=== PATIENT | female | born 1995 | race Hispanic/Latino ===

== ENCOUNTER 2018-04-18 13:33 | Emergency (ER) | payer OTHER ==
[~2018-04-18] VITALS: Ht 160 cm; Wt 95.3 kg
[2018-04-18] MEDS ORDERED: MORPHINE SULFATE 4 MG/ML SYR IV STA (13:34)
[2018-04-18] MEDS ORDERED: SODIUM CHLORIDE 0.9% 1000ML 1,000 ML IV STA (13:34)
[2018-04-18] MEDS ORDERED: MORPHINE SULFATE 2 MG/ML SYR ONE (13:42)
[2018-04-18] MEDS ORDERED: ONDANSETRON HCL 4 MG ORAL DISINTEGRATING TAB PO ONE (13:45)
[2018-04-18 14:06] LABS: BASOPHILS % 0.5 % (0.0-1.0); EOSINOPHILS % 0.5 % (0.0-6.0); HEMOGLOBIN 13.5 g/dL (12.0-16.0); LYMPHOCYTES # (AUTO) 2.1 (1.0-3.2); LYMPHOCYTES % 25.2 % (18.0-39.1); MEAN CORPUSCULAR HEMOGLOBIN 29.9 pg (28-32); MEAN CORPUSCULAR HGB CONC 35.5 g/dL (31-35); MEAN CORPUSCULAR VOLUME 84.1 fL (81-99); MONOCYTES # (AUTO) 0.5 (0.2-0.8); MONOCYTES % 6.4 % (4.4-11.3); NEUTROPHILS # (AUTO) 5.6 (2.1-6.9); NEUTROPHILS % 66.8 % (38.7-80.0); PLATELET COUNT 389 x10e3/uL (140-360); RED BLOOD COUNT 4.52 x10e6/uL (3.6-5.1); RED CELL DISTRIBUTION WIDTH 12.6 % (11.7-14.4)
[2018-04-18 14:28] LABS: ALANINE AMINOTRANSFERASE 130 IU/L (0-55); ALBUMIN 4.4 g/dL (3.5-5.0); ALBUMIN/GLOBULIN RATIO 1.2 (0.8-2.0); ALKALINE PHOSPHATASE 76 IU/L (40-150); AMYLASE 68 U/L (25-125); ANION GAP 14.5 mmol/L (8-16); BLOOD UREA NITROGEN 11 mg/dL (7-26); BUN/CREATININE RATIO 15 (6-25); CARBON DIOXIDE 23 mmol/L (22-29); CHLORIDE 103 mmol/L (98-107); CREATININE, SERUM 0.75 mg/dL (0.57-1.11); EST GLOMERULAR FILTRATION RATE > 60 ML/MIN (60-); GLUCOSE 122 mg/dL (74-118); LIPASE 180 U/L (8-78); POTASSIUM 3.5 mmol/L (3.5-5.1); SODIUM 137 mmol/L (136-145)
[2018-04-18] MEDS ORDERED: DONNATAL/LIDOCAINE/MAALOX 30 ML SUSP PO SCH (15:00)
--- NOTE | 2018-04-18 15:07 | Diagnostic Imaging Report ---
PROCEDURE:GALLBLADDER ULTRASOUND COMPARISON:None. INDICATION:Abdominal pain. TECHNIQUE:Mitchell scale color Doppler ultrasound gallbladder. FINDINGS: Right liver span 16 cm. Diffusely increased/coarsened echotexture with a smooth margin. Portal vein diameter 0.9 cm; normal flow direction. Contracted gallbladder containing mobile calcified stones. Wall thickness 3 mm. Common bile duct diameter 4 mm. No sonographic Mckeon's sign. No pericholecystic fluid. CONCLUSION: 1. Cholelithiasis without sonographic evidence of cholecystitis. 2. Hepatic steatosis. Dictated by: Ruben Delgado M.D. on 04/18/2018 at 15:09 Electronically approved by: Ruben Delgado M.D. on 04/18/2018 at 15:09
--- NOTE | 2018-04-18 15:45 | Diagnostic Imaging Report ---
PROCEDURE: CT ABDOMEN AND PELVIS WITHOUT CONTRAST TECHNIQUE: The abdomen and pelvis were scanned utilizing a multidetector helical scanner from the diaphragm to the lesser trochanter after the oral administration of water. No IV contrast was administered due to history of iodine allergy Coronal and sagittal multiplanar reformations were obtained. COMPARISON: Patients [facility], US, US GALLBLADDER, 04/18/2018, 14:28. INDICATIONS: RIGHT UPPER QUAD PAIN FINDINGS: ABSENCE OF INTRAVENOUS CONTRAST DECREASES SENSITIVITY FOR DETECTION OF FOCAL LESIONS AND VASCULAR PATHOLOGY. LOWER THORAX: Lung bases are clear. HEPATOBILIARY: Hepatic steatosis, worse in the right lobe. No focal lesions. No intra-or extrahepatic biliary ductal dilation. Layering 2-3 mm gallstones in the gallbladder fundus (6 coronal image 40). No wall thickening or pericholecystic fluid. SPLEEN: No splenomegaly. PANCREAS: No focal masses or ductal dilatation. ADRENALS: No adrenal nodules. KIDNEYS/URETERS: No hydronephrosis, stones, or solid mass lesions. PELVIC ORGANS/BLADDER: Bladder and uterus are unremarkable. Uterus is retroflexed. No adnexal masses. PERITONEUM / RETROPERITONEUM: No free air or fluid. LYMPH NODES: No lymphadenopathy. VESSELS: Unremarkable. GI TRACT: No bowel dilation or evidence of obstruction. Appendix is well identified and normal in caliber. No pericolonic inflammatory changes. BONES AND SOFT TISSUES: No aggressive lytic lesion. Are unremarkable. IMPRESSION: 1. No acute abdominopelvic abnormalities. 2. Cholelithiasis, without CT evidence of cholecystitis. 3. Hepatic steatosis. Bhavik Stewart M.D. Dictated by: Bhavik Stewart M.D. on 04/18/2018 at 15:47 Electronically approved by: Bhavik Stewart M.D. on 04/18/2018 at 15:47
[2018-04-18 16:00] LABS: BILIRUBIN,URINE NEGATIVE (NEGATIVE); CLARITY,URINE CLOUDY (CLEAR); COLOR,URINE RED (YELLOW); KETONES,URINE NEGATIVE (NEGATIVE); LEUKOCYTE ESTERASE ,URINE 1+ (NEGATIVE); NITRITE,URINE NEGATIVE (NEGATIVE); PROTEIN,URINE DIPSTICK 1+ (NEGATIVE); URINE UROBILINOGEN 0.2 mg/dL (0.2 - 1)
[2018-04-18 16:10] LABS: BACTERIA,URINE MODERATE /HPF; EPITHELIAL CELLS,URINE MANY /LPF; RBC,URINE >50 /HPF (0-5)
[2018-04-18 16:44] VITALS: BP 109/78
[2018-04-18] MEDS ORDERED: DONNATAL/LIDOCAINE/MAALOX 30 ML SUSP PO ONE (16:45)
== END 2018-04-18 16:40 | disposition home or self-care (01) ==
LOC: ER 13:33
DX: K80.20 Calculus of gallbladder without cholecystitis without obstruction (principal); R10.13 Epigastric pain; N39.0 Urinary tract infection, site not specified
CPT/HCPCS: 36415; 74176; 76705; 80053; 81001; 82150; 83690; 84702; 85025; 99284; J2270; J7030

== ENCOUNTER 2018-04-20 18:22 | Observation (INO) | payer OTHER ==
[~2018-04-20] VITALS: Ht 162.6 cm; Wt 101.7 kg
--- OUTSIDE RECORDS SUMMARY | 2018-04-20 18:25 | XMS REPORT ---
Author Author [facility] Address Unknown Phone Unavailable Care Team Providers Care Textile Converter Name Role Phone JENA OROURKE Unavailable Unavailable Problems This patient has no known problems. Allergies, Adverse Reactions, Alerts This patient has no known allergies or adverse reactions. Medications This patient has no known medications. Results Test Description Test Time Test Comments Text Results Atomic Results Result Comments US GALLBLADDER [place] [address] Patient Name: EDITH LEVY MR #: [id number] : 1995 Age/Sex: 22/F Req # : [id number] [facility] Physician: Ordered by: EZEKIEL TOBIN INSTRUCTIONAL ASSISTANT Report #: [id number] Location: ER Room/Bed: Procedure: [id number] US/US GALLBLADDER Exam Date: 04/18/18 Exam Time: 1428 REPORT STATUS: Signed PROCEDURE: GALLBLADDER ULTRASOUND COMPARISON: None. INDICATION: Abdominal pain. TECHNIQUE: Mitchell scale color Doppler ultrasound gallbladder. FINDINGS: Right liver span 16 cm. Diffusely increased/coarsened echotexture with a smooth margin. Portal vein diameter 0.9 cm; normal flow direction. Contracted gallbladder containing mobile calcified stones. Wall thickness 3 mm. Common bile duct diameter 4 mm. No sonographic Mckeon's sign. No pericholecystic fluid. CONCLUSION: 1. Cholelithiasis without sonographic evidence of cholecystitis. 2. Hepatic steatosis. Dictated by: Christine Delgado M.D. on 04/18/2018 at 15:09 Electronically approved by: Christine Delgado M.D. on 04/18/2018 at 15:09 Dictated By: CHRISTINE DELGADO MD [id number] Transcribed By: BENJAMÍN on 04/18/18 1509 COPY TO: EZEKIEL TOBIN INSTRUCTIONAL ASSISTANT CT ABDOMEN/PELVIS WO [place] [address] Patient Name: EDITH LEVY MR #: [id number] : 1995 Age/Sex: 22/F Req #: [id number] Physician: Ordered by: EZEKIEL TOBIN INSTRUCTIONAL ASSISTANT Report #: [id number] Location: ER Room/Bed: Procedure: [id number] CT/CT ABDOMEN/PELVIS WO Exam Date: 04/18/18 Exam Time: 1300 REPORT STATUS: Signed PROCEDURE: CT ABDOMEN AND PELVIS WITHOUT CONTRAST TECHNIQUE: The abdomen and pelvis were scanned utilizing a multidetector helical scanner from the diaphragm to the lesser trochanter after the oral administration of water. No IV contrast was administered due to history of iodine allergy Coronal and sagittal multiplanar reformations were obtained. COMPARISON: [facility], US, US GALLBLADDER, 04/18/2018, 14:28. INDICATIONS: RIGHT UPPER QUAD PAIN FINDINGS: ABSENCE OF INTRAVENOUS CONTRAST DECREASES SENSITIVITY FOR DETECTION OF FOCAL LESIONS AND VASCULAR PATHOLOGY. LOWER THORAX: Lung bases are clear. HEPATOBILIARY: Hepatic steatosis, worse in the right lobe. No focal lesions. No intra-or extrahepatic biliary ductal dilation. Layering 2-3 mm gallstones in the gallbladder fundus (6 coronal image 40). No wall thickening or pericholecystic fluid. SPLEEN: No splenomegaly. PANCREAS: No focal masses or ductal dilatation. ADRENALS: No adrenal nodules. KIDNEYS/URETERS: No hydronephrosis, stones, or solid mass lesions. PELVIC ORGANS/BLADDER: Bladder and uterus are unremarkable. Uterus is retroflexed. No adnexal masses. PERITONEUM / RETROPERITONEUM: No free air or fluid. LYMPH NODES: No lymphadenopathy. VESSELS: Unremarkable. GI TRACT: No bowel dilation or evidence of obstruction. Appendix is well identified and normal in caliber. No pericolonic inflammatory changes. BONES AND SOFT TISSUES: No aggressive lytic lesion. Are unremarkable. IMPRESSION: 1. No acute abdominopelvic abnormalities. 2. Cholelithiasis, without CT evidence of cholecystitis. 3. Hepatic steatosis. Ivy Stewart M.D. Dictated by: Ivy Stewart M.D. on 04/18/2018 at 15:47 Electronically approved by: Ivy Stewart M.D. on 04/18/2018 at 15:47 Dictated By: IVY STEWART MD 1547 Transcribed By: BENJAMÍN on 04/18/18 8327 COPY TO: EZEKIEL TOBIN NP
--- OUTSIDE RECORDS SUMMARY | 2018-04-20 18:25 | XMS REPORT | Continuity of Care Document ---
Author Author [facility] Organization [facility] Address [address] [place] [address] Phone Unavailable Care Team Providers Care Tree Puller Name Role Phone NO, PCP PCP Unavailable Insurance Providers Guarantor LoraFedericoEdith Address [id number] [place] [address] Email [facility]DECLINED [facility] Policy Number [id number] Subscriber's Name Edith Levy Relationship 18 Self / Same As Patient Advance Directives Directive Response Recorded Date/Time Does the patient have an advance directive? No 04/18/18 2:00pm If yes, is advance directive on file with [facility]? No 04/18/18 2:00pm If not on file with [facility] will patient provide a copy? No 04/18/18 2:00pm Do you have a Directive to Physician? No 04/18/18 2:00pm Do you have a Medical Power of Candy Spreader Helper? No 04/18/18 2:00pm Do you have an out of hospital Do Not Resuscitate Order? No 04/18/18 2:00pm Do you have any special needs we should be aware of? No 04/18/18 2:00pm Do you have a support person here with you today? Yes 04/18/18 2:00pm Did patient receive Notice of Privacy Practices? Yes 04/18/18 2:00pm Did patient receive patient rights and responsibilities? Yes 04/18/18 2:00pm Problems No problem information available. Medications No medication information available. Social History Smoking Status Start Date Stop Date Never Smoker Hospital Discharge Instructions No hospital discharge instruction information available. Plan of Care Discharge Date 04/18/18 4:40pm Disposition HOME, SELF-CARE Condition at Discharge Stable Instructions/Education Provided Cholelithiasis Forms Provided Work/School Excuse Prescriptions See Medication Section Referrals KAROLINA KING MD Address: [address] [place] [address] MARIBELL WALDEN MD Address: [address] [place] [address] Additional Instructions/Education 1. follow up with your doctor and gi doctor in 1-2 days without fail 2. return to ed as needed 3. avoid fatty foods Functional Status No functional status information available. Allergies, Adverse Reactions, Alerts No known allergies. Immunizations No immunization information available. Vital Signs Acute Vital Signs Vital Response Date/Time Pulse Pulse Rate (adult) 81 bpm (60 - 90) 04/18/2018 4:44pm Respiratory Rate 20 bpm (12 - 24) 04/18/2018 4:44pm Blood Pressure 109/78 mm Hg 04/18/2018 4:44pm Height 5 ft 3 in 04/18/2018 1:40pm Weight 210 lb 04/18/2018 1:40pm Body Mass Index 37.2 kg/m^2 04/18/2018 1:40pm Results Laboratory Results Test Name Result Units Flags Reference Collection Date/Time Result Date/ Time Comments White Blood Count 8.30 x10e3/uL 4.8-10.8 04/18/2018 1:35pm 04/18/2018 2 :07pm Red Blood Count 4.52 x10e6/uL 3.6-5.1 04/18/2018 1:35pm 04/18/2018 2: 07pm Hemoglobin 13.5 g/dL 12.0-16.0 04/18/2018 1:35pm 04/18/2018 2:07pm Hematocrit 38.0 % 34.2-44.1 04/18/2018 1:35pm 04/18/2018 2:07pm Mean Corpuscular Volume 84.1 fL 81-99 04/18/2018 1:35pm 04/18/2018 2: 07pm Mean Corpuscular Hemoglobin 29.9 pg 28-32 04/18/2018 1:35pm 04/18/2018 2:07pm Mean Corpuscular Hemoglobin Concent 35.5 g/dL H 31-35 04/18/2018 1:35pm 04/18/2018 2:07pm Red Cell Distribution Width 12.6 % 11.7-14.4 04/18/2018 1:35pm 2017 2:07pm Platelet Count 389 x10e3/uL H 140-360 04/18/2018 1:35pm 04/18/2018 2: 07pm Neutrophils (%) (Auto) 66.8 % 38.7-80.0 04/18/2018 1:35pm 04/18/2018 2: 07pm Lymphocytes (%) (Auto) 25.2 % 18.0-39.1 04/18/2018 1:35pm 04/18/2018 2: 07pm Monocytes (%) (Auto) 6.4 % 4.4-11.3 04/18/2018 1:35pm 04/18/2018 2: 07pm Eosinophils (%) (Auto) 0.5 % 0.0-6.0 04/18/2018 1:35pm 04/18/2018 2: 07pm Basophils (%) (Auto) 0.5 % 0.0-1.0 04/18/2018 1:35pm 04/18/2018 2:07pm IM GRANULOCYTES % 0.6 % 0.0-1.0 04/18/2018 1:35pm 04/18/2018 2:07pm Neutrophils # (Auto) 5.6 2.1-6.9 04/18/2018 1:35pm 04/18/2018 2:07pm Lymphocytes # (Auto) 2.1 1.0-3.2 04/18/2018 1:35pm 04/18/2018 2:07pm Monocytes # (Auto) 0.5 0.2-0.8 04/18/2018 1:35pm 04/18/2018 2:07pm Eosinophils # (Auto) 0.0 0.0-0.4 04/18/2018 1:35pm 04/18/2018 2:07pm Basophils # (Auto) 0.0 0.0-0.1 04/18/2018 1:35pm 04/18/2018 2:07pm Absolute Immature Granulocyte (auto 0.05 x10e3/uL 0-0.1 04/18/2018 1: 35pm 04/18/2018 2:07pm Urine Color RED H YELLOW 04/18/2018 3:50pm 04/18/2018 4:00pm Urine Clarity CLOUDY H CLEAR 04/18/2018 3:50pm 04/18/2018 4:00pm Urine Specific [place] 1.015 1.010-1.025 04/18/2018 3:50pm 2017 4:00pm Urine pH 8 H 5 - 7 04/18/2018 3:50pm 04/18/2018 4:00pm Urine Leukocyte Esterase 1+ H NEGATIVE 04/18/2018 3:50pm 04/18/2018 4: 00pm Urine Nitrite NEGATIVE NEGATIVE 04/18/2018 3:50pm 04/18/2018 4:00pm Urine Protein 1+ H NEGATIVE 04/18/2018 3:50pm 04/18/2018 4:00pm Urine Glucose (UA) NEGATIVE NEGATIVE 04/18/2018 3:50pm 04/18/2018 4: 00pm Urine Ketones NEGATIVE NEGATIVE 04/18/2018 3:50pm 04/18/2018 4:00pm Urine Urobilinogen 0.2 mg/dL 0.2 - 1 04/18/2018 3:50pm 04/18/2018 4: 00pm Urine Bilirubin NEGATIVE NEGATIVE 04/18/2018 3:50pm 04/18/2018 4: 00pm Urine Blood 4+ H NEGATIVE 04/18/2018 3:50pm 04/18/2018 4:00pm Urine WBC 11-20 /HPF H 0-5 04/18/2018 3:50pm 04/18/2018 4:10pm Urine RBC >50 /HPF H 0-5 04/18/2018 3:50pm 04/18/2018 4:10pm Urine Bacteria MODERATE /HPF H NONE 04/18/2018 3:50pm 04/18/2018 4:10pm Urine Epithelial Cells MANY /LPF NONE 04/18/2018 3:50pm 04/18/2018 4: 10pm Sodium Level 137 mmol/L 136-145 04/18/2018 1:35pm 04/18/2018 2:29pm Potassium Level 3.5 mmol/L 3.5-5.1 04/18/2018 1:35pm 04/18/2018 2:29pm Chloride Level 103 mmol/L 98-107 04/18/2018 1:3504/18/2018 2:29pm Carbon Dioxide Level 23 mmol/L 2204/18/2018 1:3504/18/2018 2: 29pm Anion Gap 14.5 mmol/L 8-16 04/18/2018 1:3504/18/2018 2:29pm Blood Urea Nitrogen 11 mg/dL 7-04/18/2018 1:3504/18/2018 2:29pm Creatinine 0.75 mg/dL 0.57-1.11 04/18/2018 1:3504/18/2018 2:29pm BUN/Creatinine Ratio 15 6-04/18/2018 1:3504/18/2018 2:29pm Estimat Glomerular Filtration Rate > 60 ML/MIN 6004/18/2018 1: 2:29pm Ranges were taken from the National Kidney Disease Education Program and the National Kidney Foundation literature. Reference ranges: 60 or greater: Normal 16-59 (for 3 consecutive months): Chronic kidney disease 15 or less: Kidney failure Glucose Level 122 mg/dL H 74-118 04/18/2018 1:3504/18/2018 2:29pm Calcium Level 10.0 mg/dL 8.4-10.2 04/18/2018 1:04/18/2018 2:29pm Total Bilirubin 1.3 mg/dL H 0.2-1.2 04/18/2018 1:3504/18/2018 2:29pm Aspartate Amino Transf (AST/SGOT) 129 IU/L H 5-34 04/18/2018 1: 2:29pm Alanine Aminotransferase (ALT/SGPT) 130 IU/L H 0-55 04/18/2018 1:35 2:29pm Total Protein 8.0 g/dL 6.5-8.1 04/18/2018 1:04/18/2018 2:29pm Albumin 4.4 g/dL 3.5-5.0 04/18/2018 1:3504/18/2018 2:29pm Globulin 3.6 g/dL H 2.3-3.5 04/18/2018 1:3504/18/2018 2:29pm Albumin/Globulin Ratio 1.2 0.8-2.0 04/18/2018 1:35pm 04/18/2018 2: 29pm Alkaline Phosphatase 76 IU/L 40-150 04/18/2018 1:35pm 04/18/2018 2: 29pm Amylase Level 68 U/L 25-125 04/18/2018 1:35pm 04/18/2018 2:29pm Lipase 180 U/L H 8-78 04/18/2018 1:35pm 04/18/2018 2:29pm Human Chorionic Gonadotropin, Qual NEGATIVE NEGATIVE 04/18/2018 1: 35pm 04/18/2018 2:17pm Procedures Procedure Status Date Provider(s) US gallbladder Active 04/18/18 EZEKIEL TOBIN SENIOR SYSTEMS SOFTWARE ENGINEER CT of abdomen and pelvis without contrast Active 04/18/18 EZEKIEL TOBIN SENIOR SYSTEMS SOFTWARE ENGINEER Encounters Encounter Location Arrival/Admit Date Discharge/Depart Date Attending Provider Departed Emergency Room [facility] 04/18/18 1:33pm 4:40pm JENA OROURKE MD
[2018-04-20] MEDS ORDERED: SODIUM CHLORIDE 0.9% 1000ML 1,000 ML IV STA (18:29)
[2018-04-20] MEDS ORDERED: ONDANSETRON HCL 4 MG ORAL DISINTEGRATING TAB PO ONE (18:30)
[2018-04-20] MEDS ORDERED: MORPHINE SULFATE 4 MG/ML SYR IV STA (18:42)
[2018-04-20] MEDS ORDERED: DONNATAL/LIDOCAINE/MAALOX 30 ML SUSP PO SCH (18:45)
[2018-04-20 19:06] LABS: BASOPHILS % 0.4 % (0.0-1.0); EOSINOPHILS # (AUTO) 0.1 (0.0-0.4); EOSINOPHILS % 1.3 % (0.0-6.0); HEMATOCRIT 37.2 % (34.2-44.1); HEMOGLOBIN 12.9 g/dL (12.0-16.0); LYMPHOCYTES # (AUTO) 1.4 (1.0-3.2); LYMPHOCYTES % 19.4 % (18.0-39.1); MEAN CORPUSCULAR HEMOGLOBIN 29.6 pg (28-32); MEAN CORPUSCULAR HGB CONC 34.7 g/dL (31-35); MEAN CORPUSCULAR VOLUME 85.3 fL (81-99); MONOCYTES # (AUTO) 0.4 (0.2-0.8); MONOCYTES % 5.9 % (4.4-11.3); NEUTROPHILS # (AUTO) 5.2 (2.1-6.9); NEUTROPHILS % 72.2 % (38.7-80.0); PLATELET COUNT 318 x10e3/uL (140-360); RED BLOOD COUNT 4.36 x10e6/uL (3.6-5.1); RED CELL DISTRIBUTION WIDTH 12.7 % (11.7-14.4)
[2018-04-20 19:22] LABS: ALANINE AMINOTRANSFERASE 634 IU/L (0-55); ALBUMIN 4.3 g/dL (3.5-5.0); ALBUMIN/GLOBULIN RATIO 1.1 (0.8-2.0); ALKALINE PHOSPHATASE 104 IU/L (40-150); AMYLASE 48 U/L (25-125); ANION GAP 16.9 mmol/L (8-16); BLOOD UREA NITROGEN 13 mg/dL (7-26); BUN/CREATININE RATIO 19 (6-25); CALCIUM 9.6 mg/dL (8.4-10.2); CARBON DIOXIDE 21 mmol/L (22-29); CHLORIDE 104 mmol/L (98-107); CREATINE KINASE 80 IU/L (29-168); EST GLOMERULAR FILTRATION RATE > 60 ML/MIN (60-); GLUCOSE 91 mg/dL (74-118); LIPASE 74 U/L (8-78); POTASSIUM 3.9 mmol/L (3.5-5.1); SODIUM 138 mmol/L (136-145)
[2018-04-20 19:23] LABS: BILIRUBIN,URINE 2+ (NEGATIVE); CLARITY,URINE SL CLOUDY (CLEAR); COLOR,URINE STRAW (YELLOW); KETONES,URINE 2+ (NEGATIVE); LEUKOCYTE ESTERASE ,URINE NEGATIVE (NEGATIVE); NITRITE,URINE NEGATIVE (NEGATIVE); PROTEIN,URINE DIPSTICK 2+ (NEGATIVE); URINE UROBILINOGEN 1 mg/dL (0.2 - 1)
[2018-04-20] MEDS ORDERED: MORPHINE SULFATE 2 MG/ML SYR ONE (19:27)
[2018-04-20 19:33] LABS: AMORPHOUS SEDIMENT,URINE MODERATE (FEW); BACTERIA,URINE MODERATE /HPF; EPITHELIAL CELLS,URINE MODERATE /LPF; TRANSITIONAL EPI CELLS,URINE FEW; WBC,URINE (MAN) 0-5 /HPF (0-5)
--- NOTE | 2018-04-20 21:12 | Diagnostic Imaging Report ---
EXAM: US GALLBLADDER INDICATION: Abdominal pain COMPARISON: April 18, 2018 TECHNIQUE: Transverse and longitudinal sonographic images of the right upper abdomen were obtained. FINDINGS: LIVER: 15 cm in the right midclavicular line. Increased echogenicity, normal contour, no masses. Main Portal Vein: Normal size with hepatopetal flow. GALLBLADDER: Gallstones without wall thickening or pericholecystic fluid. Negative sonographic Mckeon's sign. BILE DUCTS: No intra nor extra-hepatic dilation. Common bile duct measures 0.4 cm. PANCREAS: Not well visualized RIGHT KIDNEY: 12 cm in length Echogenicity: Normal Collecting System: No hydronephrosis Stones: None Cyst/Mass: None FREE FLUID: None in the right upper quadrant of the abdomen IMPRESSION: Hepatic steatosis. Cholelithiasis without findings of cholecystitis. Signed by: Dr. Emelia Yañez M.D. on 04/20/2018 9:09 PM
[2018-04-20] MEDS ORDERED: DICYCLOMINE HCL 20 MG/2 ML VIAL IM ONE ×2 (21:19→21:30)
[2018-04-20] MEDS ORDERED: ONDANSETRON HCL 4 MG ORAL DISINTEGRATING TAB PO PRN (22:00)
[2018-04-20] MEDS ORDERED: PIPER-TAZ 3.375 GM 0 ML ONE (22:36)
[2018-04-20] MEDS ORDERED: PIPER-TAZ 3.375 GM 50 ML ONE (22:37)
[2018-04-20] MEDS: SODIUM CHLORIDE 0.9% 1000ML 1,000 ML IV SCH (22:44)
[2018-04-20 23:48] VITALS: BP 117/71
[2018-04-21] VITALS: BP 117/71
[2018-04-21 04:00] VITALS: BP 103/59
[2018-04-21] MEDS: MORPHINE SULFATE 2 MG/ML SYR IV PRN (04:56)
[2018-04-21] MEDS: PIPER-TAZ 3.375 GM 50 ML IV SCH ×4 (04:57→23:57)
[2018-04-21 06:08] LABS: BASOPHILS % 0.6 % (0.0-1.0); EOSINOPHILS # (AUTO) 0.1 (0.0-0.4); EOSINOPHILS % 1.7 % (0.0-6.0); HEMATOCRIT 33.3 % (34.2-44.1); HEMOGLOBIN 11.4 g/dL (12.0-16.0); LYMPHOCYTES # (AUTO) 1.4 (1.0-3.2); LYMPHOCYTES % 27.5 % (18.0-39.1); MEAN CORPUSCULAR HEMOGLOBIN 29.5 pg (28-32); MEAN CORPUSCULAR HGB CONC 34.2 g/dL (31-35); MEAN CORPUSCULAR VOLUME 86.3 fL (81-99); MONOCYTES # (AUTO) 0.5 (0.2-0.8); MONOCYTES % 8.8 % (4.4-11.3); NEUTROPHILS # (AUTO) 3.2 (2.1-6.9); NEUTROPHILS % 60.6 % (38.7-80.0); PLATELET COUNT 295 x10e3/uL (140-360); RED BLOOD COUNT 3.86 x10e6/uL (3.6-5.1); RED CELL DISTRIBUTION WIDTH 12.8 % (11.7-14.4)
[2018-04-21 06:33] LABS: ALANINE AMINOTRANSFERASE 545 IU/L (0-55); ALBUMIN 3.5 g/dL (3.5-5.0); ALBUMIN/GLOBULIN RATIO 1.1 (0.8-2.0); ALKALINE PHOSPHATASE 99 IU/L (40-150); BLOOD UREA NITROGEN 10 mg/dL (7-26); BUN/CREATININE RATIO 15 (6-25); CALCIUM 8.4 mg/dL (8.4-10.2); CARBON DIOXIDE 21 mmol/L (22-29); CHLORIDE 107 mmol/L (98-107); CREATININE, SERUM 0.66 mg/dL (0.57-1.11); EST GLOMERULAR FILTRATION RATE > 60 ML/MIN (60-); GLUCOSE 90 mg/dL (74-118); SODIUM 138 mmol/L (136-145)
[2018-04-21] MEDS ORDERED: KETOROLAC TROMETHAMINE 30 MG/ML VIAL IV PRN (07:15)
[2018-04-21 08:00] VITALS: BP 112/67
[2018-04-21] MEDS ORDERED: IOPAMIDOL 610MG/1ML 300 MG/ML VIAL IV ONE (10:49)
[2018-04-21] MEDS ORDERED: BUPIVACAINE 0.25%/EPI 30ML SDV INJ ONE (10:49)
[2018-04-21] MEDS ORDERED: PIPER-TAZ 3.375 GM 50 ML ONE (11:03)
[2018-04-21] MEDS: SODIUM CHLORIDE 0.9% 1000ML 1,000 ML IV SCH ×3 (11:10→23:57)
[2018-04-21] MEDS ORDERED: PANTOPRAZOLE 40 MG 10ML VIAL IV SCH (13:00)
[2018-04-21] MEDS ORDERED: HYDROMORPHONE 2MG/ML INJ IV PRN (13:00)
[2018-04-21] MEDS ORDERED: FENTANYL CITRATE/PF 100MCG/2 ML INJ ONE ×2 (13:19→17:55)
--- NOTE | 2018-04-21 13:52 | Operative Report ---
DATE OF PROCEDURE: April 21, 2018 PREOPERATIVE DIAGNOSES 1. Cholelithiasis. 2. Biliary colic. 3. Cholecystitis. 4. Obesity. 5. Urinary tract infection status post esophagogastroduodenoscopy. POSTOPERATIVE DIAGNOSES 1. Cholelithiasis. 2. Acute subacute cholecystitis secondary to cholelithiasis. 3. Obesity. 4. Urinary tract infection status post esophagogastroduodenoscopy. FURNITURE BUILDER: CATIA Lang ANESTHESIA: General. ESTIMATED BLOOD LOSS: Minimal. DRAINS: None. COMPLICATIONS: None. INDICATIONS AND FINDINGS: The patient is an obese female admitted from the emergency room with upper abdominal pain. The patient the day before admission had an EGD by her space buyer and then the patient was discharged home. She then presented to the emergency room at Patients complaining of upper abdominal pain again. In the ER she was worked up with an ultrasound that revealed cholelithiasis, the common bile duct was 4 mm. She also had a UTI so patient was admitted for further treatment. INTRAOPERATIVE FINDINGS: The patient had evidence of gallbladder wall edema consistent with acute subacute cholecystitis. The gallbladder was large, filled with bile. It was folded on itself and it was stuck to the common duct in most of its entirety. The cystic duct which was high lying close to the ross hepatis in the area of the common hepatic duct, was very short. It did not appear to be grossly dilated. Because the patient had elevation of the transaminases, I was considering doing intraoperative cholangiogram. However, due to the fact that this patient is morbidly obese, had a heavy and somewhat redundant liver with a short cystic duct, I felt that attempting to perform a cystic duct under less than ideal conditions, could risk avulsing the common bile duct by the traction and it was decided to abort. Liver chemistry will be followed up. I think that this is all hepatic liver infiltration superimposed on acute subacute cholecystitis. DESCRIPTION OF PROCEDURE: With the patient lying on the operative table in the supine position after administration of general endotracheal anesthesia, she was prepped and draped for laparoscopic cholecystectomy. We started the procedure by attempting to create a pneumoperitoneum in the umbilical site. However, several attempts on that side were not successful and we intubated the preperitoneal space without gaining access to the free abdominal cavity. Because of this then we changed location and attempted a right midclavicular line access to the pneumoperitoneum. After we obtained access, as evidenced by the saline drop test, we placed a 5 mm trocar in that location. We then introduced a 5 mm camera. We inspected the umbilical site and at this point then we placed a 10/11 trocar. We then rotated the patient to the left and with the head up, and placed a 10/11 trocar in the subxiphoid region and a right anterior 5 mm trocar was also placed. We went ahead and then had to place eventually a 5 mm trocar in the left upper quadrant because of the fact the patient was heavy nearly morbidly obese and in order to adequately expose the operative field we had to place a 5th trocar to retract the stomach and colon inferiorly. Of note, is the fact that this patient had what appeared to be a significant amount of air in the colon. After we gained access to the gallbladder we retracted cephalad through the 2 grasping forceps and there were some adhesions of the omentum to the gallbladder that were lysed. We then began the dissection by mobilization of the gallbladder which appeared to be folded on itself and it was found to be laying on top of the common duct. We carefully and methodically continued the mobilization the proximal part of the gallbladder from the common duct. The first structure that we found was a cystic artery that we transected it between titanium clips and then we did not continue the dissection. We were not able to see the cystic duct until we further mobilized the gallbladder from being on top of the common bile duct until fairly high into the proximal common duct, close to the hepatic duct we found the cystic duct, which was not dilated. The cystic duct was fairly short. The right lobe of the liver was fairly large, fatty liver infiltrated. At this point, we had been considering doing the intraoperative cholangiogram, but for the reasons previously stated I decided not to do that and abort the procedure for intraoperative cholangiogram. We then clipped the cystic duct distally 3 times and aunt and one proximally and transected it and then a posterior branch of the gallbladder of the cystic artery was transected with the titanium clips and then we finished the dissection by taking the gallbladder from the liver bed using electrocautery dissection. At this point we then removed the gallbladder, detached it from the liver bed, placed in an Endo bag and removed it. Through the umbilical port we then reinstated the pneumoperitoneum after ascertaining that there was no bile leak, no apparent bowel injury and cauterizing any oozer. We released the pneumoperitoneum under direct vision with the camera and closed the wounds using 0 Vicryl for the umbilical fascia, 3-0 Vicryl for the subcutaneous tissue in that location as well as the subxiphoid port and the skin of all the ports was closed using boone. Then 0.25% Marcaine with epinephrine was given as local block at the end of the case. The patient tolerated the procedure well, was taken to the recovery room in stable condition. Job#: [id number] PRIYANKA
[2018-04-21 14:09] LABS: FERRITIN 107.62 ng/mL (4.63-204.00)
--- NOTE | 2018-04-21 14:38 | History and Physical ---
ADDENDUM TO HISTORY AND PHYSICAL She just underwent a cholecystectomy by Dr. Matthew Christine. I discussed the case with Dr. Christine about the need for MRCP. He said that we do not need to do an MRCP. We are going to watch the liver function tests very carefully and then decide about the future if we need that or not. Dr. Matthew Christine attributed the elevated liver function test to liver steatosis that the patient had on a liver ultrasound. In the operating room when he did the surgery, he did not notice any type of gallstones in the common bile duct at all. So we are going to hold on, on the MRCP for now. We are going to watch the liver function tests carefully. If the liver function tests do not go back to normal or to a lower number, then we will consider. Dr. Matthew Christine recommended that we do not need MRCP right now; the same would add to the garment sorter. So we are going to keep watching the liver function tests and then go from there. Job#: [id number] PRIYANKA
[2018-04-21] MEDS: ONDANSETRON HCL 4 MG ORAL DISINTEGRATING TAB PO PRN (15:25)
[2018-04-21] MEDS: HYDROMORPHONE 2MG/ML INJ IV PRN ×2 (15:25→19:44)
[2018-04-21 16:56] VITALS: BP 116/64
[2018-04-21] MEDS ORDERED: ONDANSETRON HCL INJ 2 MG/ML VIAL ONE (17:27)
[2018-04-21] MEDS ORDERED: PROPOFOL IV EMULSION 10 MG/ML 20 ML VIAL ONE (17:27)
[2018-04-21] MEDS ORDERED: DEXAMETHASONE SOD PHOS INJ 4 MG/ML VIAL ONE (17:27)
[2018-04-21] MEDS ORDERED: NEOSTIGMINE 5 MG/5ML SYR ONE (17:27)
[2018-04-21] MEDS ORDERED: GLYCOPYRROLATE INJ 1MG/ 5 ML SYR ONE (17:27)
[2018-04-21] MEDS ORDERED: LIDOCAINE HCL 2% LOCAL INJ 5 ML SDV VIAL INJ ONE (17:27)
[2018-04-21] MEDS ORDERED: ROCURONIUM BROMIDE 10 MG/ML 5ML VIAL ONE (17:27)
[2018-04-21] MEDS ORDERED: SEVOFLURANE INHAL SOLN 250 ML PEN BTL ONE (17:27)
[2018-04-21] MEDS ORDERED: MIDAZOLAM HCL 2 MG/2 ML VIAL ONE (17:55)
[2018-04-21 19:44] VITALS: BP 117/66
[2018-04-21] MEDS: PANTOPRAZOLE 40 MG 10ML VIAL IV SCH (19:44)
[2018-04-21 20:00] VITALS: BP 117/66
[2018-04-21] MEDS: HYDROCODONE/APAP 7.5MG-325MG 1 EA TAB PO PRN (22:11)
[2018-04-21] MEDS ORDERED: PIPER-TAZ 3.375 GM 50 ML IV SCH (23:00)
[2018-04-22] VITALS (7 sets, daily range): BP systolic 111–127; BP diastolic 57–69
[2018-04-22] MEDS: HYDROMORPHONE 2MG/ML INJ IV PRN ×5 (00:10→17:40)
[2018-04-22] MEDS: MORPHINE SULFATE 2 MG/ML SYR IV PRN (03:55)
[2018-04-22] MEDS: PIPER-TAZ 3.375 GM 50 ML IV SCH ×4 (06:21→23:52)
[2018-04-22 06:57] LABS: BASOPHILS % 0.2 % (0.0-1.0); EOSINOPHILS % 0.1 % (0.0-6.0); HEMATOCRIT 31.8 % (34.2-44.1); HEMOGLOBIN 11.1 g/dL (12.0-16.0); LYMPHOCYTES # (AUTO) 1.2 (1.0-3.2); LYMPHOCYTES % 10.9 % (18.0-39.1); MEAN CORPUSCULAR HGB CONC 34.9 g/dL (31-35); MEAN CORPUSCULAR VOLUME 85.9 fL (81-99); MONOCYTES # (AUTO) 0.8 (0.2-0.8); MONOCYTES % 7.2 % (4.4-11.3); NEUTROPHILS % 80.8 % (38.7-80.0); PLATELET COUNT 267 x10e3/uL (140-360)
[2018-04-22 07:19] LABS: ALANINE AMINOTRANSFERASE 656 IU/L (0-55); ALBUMIN 3.4 g/dL (3.5-5.0); ALBUMIN/GLOBULIN RATIO 1.1 (0.8-2.0); ALKALINE PHOSPHATASE 103 IU/L (40-150); BLOOD UREA NITROGEN 6 mg/dL (7-26); BUN/CREATININE RATIO 10 (6-25); CALCIUM 8.9 mg/dL (8.4-10.2); CARBON DIOXIDE 22 mmol/L (22-29); CHLORIDE 100 mmol/L (98-107); CREATININE, SERUM 0.62 mg/dL (0.57-1.11); EST GLOMERULAR FILTRATION RATE > 60 ML/MIN (60-); GLUCOSE 111 mg/dL (74-118); POTASSIUM 3.9 mmol/L (3.5-5.1)
[2018-04-22 07:44] LABS: ANION GAP 15.9 mmol/L (8-16); SODIUM 134 mmol/L (136-145)
[2018-04-22] MEDS: ONDANSETRON HCL 4 MG ORAL DISINTEGRATING TAB PO PRN ×3 (08:30→17:40)
[2018-04-22] MEDS: SODIUM CHLORIDE 0.9% 1000ML 1,000 ML IV SCH ×3 (08:51→22:34)
--- NOTE | 2018-04-22 12:37 | Diagnostic Imaging Report ---
EXAM: MR Abdomen WITHOUT and WITH Contrast Magnetic Resonance Cholangiopancreatography (M.R.C.P.) INDICATION: \S\MRI CHOLANGIOGRAM///ELEVATED LFTS \S\Y COMPARISON: None. TECHNIQUE: Multiplanar and multisequence imaging was performed of the abdomen withoutcontrast. T1-weighted, T2-weighted images, T1-weighted in and pww-xl-ondil, and MRCP sequences were obtained. IV Contrast: None Oral Contrast: None Medications: None COMPLICATIONS: None FINDINGS: LOWER THORAX: Trace pleural effusions. HEPATOBILIARY: Hepatic steatosis. No focal hepatic lesions. No biliary ductal dilation. GALLBLADDER: Interval cholecystectomy with trace fluid in the cholecystectomy bed, preperitoneal soft tissues, and right anterolateral abdominal wall. The common bile duct is slightly dilated proximally measuring 0.9 cm and tapers distally to 0.6 cm. No filling defects in the common bile duct. SPLEEN: No splenomegaly. PANCREAS: No focal masses or ductal dilatation. ADRENALS: No adrenal nodules KIDNEYS/URETERS: Kidneys enhance symmetrically. No hydronephrosis. No cystic or solid mass lesions. GI TRACT: No abnormal distention, wall thickening, or evidence of bowel obstruction. PELVIS: Limited views of the pelvis show a complex 3.1 cm T2 hyperintense round lesion in the right ovary with an angulated T2 hypointense structure within which may represent a hemorrhagic cyst with retractile clot. LYMPH NODES: No lymphadenopathy. VESSELS: Preserved flow voids. PERITONEUM / RETROPERITONEUM: Trace fluid in the right upper quadrant. BONES: No suspicious marrow signal abnormalities. SOFT TISSUES: Stranding in the right anterolateral abdominal wall with one area which shows a linear tract suggesting laparoscopic port site. IMPRESSION: Interval cholecystectomy with expected postoperative changes. Mildly dilated common bile duct likely related to reservoir effect from cholecystectomy. No evidence of choledocholithiasis. Hepatic steatosis. Complex right ovarian 3.1 cm cyst may represent a hemorrhagic cyst but is incompletely evaluated with the available sequences. Recommend nonemergent pelvic ultrasound for further evaluation. Signed by: DR. Pramod Aj MD on 04/22/2018 12:33 PM
[2018-04-22] MEDS: PANTOPRAZOLE 40 MG 10ML VIAL IV SCH (20:30)
[2018-04-23] VITALS (8 sets, daily range): BP systolic 117–135; BP diastolic 57–71
[2018-04-23] MEDS: SODIUM CHLORIDE 0.9% 1000ML 1,000 ML IV SCH ×2 (04:51→14:02)
[2018-04-23] MEDS: PIPER-TAZ 3.375 GM 50 ML IV SCH ×3 (05:35→17:40)
[2018-04-23 07:09] LABS: BASOPHILS % 0.4 % (0.0-1.0); EOSINOPHILS # (AUTO) 0.1 (0.0-0.4); EOSINOPHILS % 0.8 % (0.0-6.0); HEMATOCRIT 32.5 % (34.2-44.1); HEMOGLOBIN 11.1 g/dL (12.0-16.0); LYMPHOCYTES # (AUTO) 1.2 (1.0-3.2); LYMPHOCYTES % 17.1 % (18.0-39.1); MEAN CORPUSCULAR HEMOGLOBIN 29.5 pg (28-32); MEAN CORPUSCULAR HGB CONC 34.2 g/dL (31-35); MEAN CORPUSCULAR VOLUME 86.4 fL (81-99); MONOCYTES # (AUTO) 0.6 (0.2-0.8); MONOCYTES % 7.8 % (4.4-11.3); NEUTROPHILS # (AUTO) 5.1 (2.1-6.9); NEUTROPHILS % 71.2 % (38.7-80.0); PLATELET COUNT 256 x10e3/uL (140-360); RED BLOOD COUNT 3.76 x10e6/uL (3.6-5.1); RED CELL DISTRIBUTION WIDTH 13.1 % (11.7-14.4)
[2018-04-23 07:44] LABS: ALANINE AMINOTRANSFERASE 596 IU/L (0-55); ALBUMIN 3.4 g/dL (3.5-5.0); ALKALINE PHOSPHATASE 139 IU/L (40-150); ANION GAP 12.8 mmol/L (8-16); BLOOD UREA NITROGEN < 5 mg/dL (7-26); CALCIUM 8.9 mg/dL (8.4-10.2); CARBON DIOXIDE 22 mmol/L (22-29); CHLORIDE 103 mmol/L (98-107); CREATININE, SERUM 0.62 mg/dL (0.57-1.11); EST GLOMERULAR FILTRATION RATE > 60 ML/MIN (60-); GLUCOSE 105 mg/dL (74-118); POTASSIUM 3.8 mmol/L (3.5-5.1); SODIUM 134 mmol/L (136-145)
[2018-04-23 07:51] LABS: BUN/CREATININE RATIO 8 (6-25)
[2018-04-23 11:37] LABS: BAND NEUTROPHILS % (MANUAL) 1 %; LYMPHOCYTES % (MANUAL) 16 % (19-48); MONOCYTES % (MANUAL) 4 % (3.4-9.0); NEUTROPHILS % (MANUAL) 79 % (40-74)
[2018-04-23 11:38] LABS: PLATELET ESTIMATE ADEQUATE; PLATELET MORPHOLOGY COMMENT NORMAL; RBC MORPHOLOGY COMMENT NORMAL
[2018-04-23] MEDS: HYDROCODONE/APAP 7.5MG-325MG 1 EA TAB PO PRN (12:53)
[2018-04-23] MEDS: PANTOPRAZOLE 40 MG 10ML VIAL IV SCH (20:24)
[2018-04-23] MEDS: ONDANSETRON HCL 4 MG ORAL DISINTEGRATING TAB PO PRN (22:51)
[2018-04-23] MEDS: HYDROMORPHONE 2MG/ML INJ IV PRN ×2 (22:51)
[2018-04-24] VITALS: BP 119/71
[2018-04-24] MEDS: PIPER-TAZ 3.375 GM 50 ML IV SCH ×3 (00:03→12:44)
[2018-04-24] MEDS: SODIUM CHLORIDE 0.9% 1000ML 1,000 ML IV SCH ×2 (00:04→11:59)
--- NOTE | 2018-04-24 00:36 | Progress Note ---
DATE: April 22, 2018 Ms. Paulino is awake, alert. She is complaining of some abdominal discomfort today post her cholecystectomy. She is on liquid diet, hemodynamically stable and afebrile. However, her lab tests showed that her liver enzymes have increased from the day before. After discussing the patient with Dr. Christine, we decided to schedule MRI cholangiogram. In the meantime, will keep the same management as far as medication. Based on the MRI cholangiogram result, will decide if ERCP is needed or will keep following her liver enzymes. Job#: [id number]
[2018-04-24 04:00] VITALS: BP_SYST 133; BP_SYST 164; BP_DIAS 68; BP_DIAS 75
[2018-04-24 07:15] VITALS: BP 124/72
[2018-04-24 07:23] LABS: BASOPHILS % 0.7 % (0.0-1.0); EOSINOPHILS # (AUTO) 0.2 (0.0-0.4); EOSINOPHILS % 3.2 % (0.0-6.0); HEMATOCRIT 31.9 % (34.2-44.1); HEMOGLOBIN 10.8 g/dL (12.0-16.0); LYMPHOCYTES # (AUTO) 1.3 (1.0-3.2); LYMPHOCYTES % 23.4 % (18.0-39.1); MEAN CORPUSCULAR HEMOGLOBIN 29.6 pg (28-32); MEAN CORPUSCULAR HGB CONC 33.9 g/dL (31-35); MEAN CORPUSCULAR VOLUME 87.4 fL (81-99); MONOCYTES # (AUTO) 0.5 (0.2-0.8); MONOCYTES % 8.3 % (4.4-11.3); NEUTROPHILS # (AUTO) 3.4 (2.1-6.9); NEUTROPHILS % 61.3 % (38.7-80.0); PLATELET COUNT 270 x10e3/uL (140-360); RED BLOOD COUNT 3.65 x10e6/uL (3.6-5.1)
[2018-04-24 07:48] LABS: ALANINE AMINOTRANSFERASE 501 IU/L (0-55); ALBUMIN 3.2 g/dL (3.5-5.0); ALBUMIN/GLOBULIN RATIO 0.9 (0.8-2.0); ALKALINE PHOSPHATASE 136 IU/L (40-150); ANION GAP 12.8 mmol/L (8-16); BLOOD UREA NITROGEN 5 mg/dL (7-26); BUN/CREATININE RATIO 8 (6-25); CALCIUM 9.2 mg/dL (8.4-10.2); CARBON DIOXIDE 23 mmol/L (22-29); CHLORIDE 104 mmol/L (98-107); CREATININE, SERUM 0.62 mg/dL (0.57-1.11); EST GLOMERULAR FILTRATION RATE > 60 ML/MIN (60-); GLUCOSE 98 mg/dL (74-118); POTASSIUM 3.8 mmol/L (3.5-5.1); SODIUM 136 mmol/L (136-145)
[2018-04-24 07:52] LABS: BAND NEUTROPHILS % (MANUAL) 4 %; EOSINOPHILS % (MANUAL) 2 % (0-7); LYMPHOCYTES % (MANUAL) 19 % (19-48); MONOCYTES % (MANUAL) 3 % (3.4-9.0); NEUTROPHILS % (MANUAL) 71 % (40-74); PLATELET ESTIMATE ADEQUATE; PLATELET MORPHOLOGY COMMENT NORMAL; RBC MORPHOLOGY COMMENT NORMAL
[2018-04-24 08:00] VITALS: BP_SYST 124; BP_SYST 137; BP_DIAS 72; BP_DIAS 80
[2018-04-24 08:08] LABS: AMYLASE 38 U/L (25-125); LIPASE 54 U/L (8-78)
[2018-04-24] MEDS: ONDANSETRON HCL 4 MG ORAL DISINTEGRATING TAB PO PRN (11:53)
[2018-04-24] MEDS: HYDROMORPHONE 2MG/ML INJ IV PRN (11:53)
[2018-04-24] MEDS ORDERED: PANTOPRAZOLE 40 MG 10ML VIAL IV ONE (13:00)
--- NOTE | 2018-04-24 13:38 | Discharge Summary ---
This 22-year-old female, who has no significant past medical history, came here because of abdominal pain. She was admitted by Dr. Jacob of gastroenterology, who did an upper endoscopy recently which showed gastritis, according to the patient. She was found also to have gallstones. She underwent a laparoscopic cholecystectomy. She had elevated liver function tests, which are slowly coming down. She had an MRCP, which showed no evidence of any common bile duct stones. Patient is afebrile. White blood count is normal, and the numbers on the liver function tests are slowly coming back to normal. Patient is complaining of some epigastric pain, which was present before the cholecystectomy; but as I said, Dr. Jacob of gastroenterology did an upper endoscopy, which showed only gastritis. Patient is 22 years old with no risk factors for any coronary artery disease. She does not smoke. She does not have any family history of coronary artery disease. I think from my point of view she is safe to go home. She is being discharged also by Dr. Gibran Christine, surgeon. On physical exam, blood pressure is 124/72, temperature 97.6, heart rate 77 per minute, respiratory rate 18 per minute, oxygen saturation 96%. On the BMP, sodium is 136, potassium 3.8, chloride 104, CO2 33, BUN 5, creatinine 0.62, glucose 98. On the CBC, white blood count 5.55, hemoglobin 10.8, hematocrit 31.9, platelet count 270,000. AST 154 and ALT 501, which is down from the numbers she had before. Total bilirubin 2.2, which is slowly coming down. Alkaline phosphatase 136. FINAL IMPRESSION 1. Acute cholecystitis, status post open cholecystectomy. 2. Elevated liver function tests, most likely secondary to a stone that passed from the common bile duct, but there is no evidence of any common bile duct stone at this point in time evidenced by the magnetic resonance cholangiopancreatography. 3. Epigastric pain. 4. Right ovarian cyst. The patient is going to be discharged home on Keflex 500 mg 3 times a day for 10 days; Tylenol No. 3 one tablet every 4 hours as needed for pain, 20 tablets, no refills; Protonix 40 mg daily because of gastritis that she had in the past. Also, on the referral, the patient is supposed to follow up with Dr. Jacob of gastroenterology in a week because of the elevated LFTs so he can do a follow up on the blood work. The liver function tests are slowly coming down. Follow up with Dr. Gibran Christine, surgeon, also for followup after the cholecystectomy. Also, I told her to follow up with the [facility] for the right ovarian cyst because she needs to have another pelvic ultrasound to make sure the ovarian cyst is gone or not. The patient is going to be discharged also on Protonix 40 mg daily because of history of gastritis. She is clinically stable to be discharged and followed up as an outpatient. She can go to the ER if her symptoms do not improve. REE MCKEON MD Job#: [id number]
--- NOTE | 2018-04-24 16:32 | Consultation ---
DATE OF CONSULTATION: April 21, 2018 HPI: Ms. Paulino is a young 22-year-old lady who came to see me in the office about a day before her admission with abdominal pain located in the epigastric area, progressive but not controlled well with antispasmodic agent or antacid agent. Began about 2 to 3 months ago. Occurred after she delivered her baby. Described it as dull cramping, lasting 2 to 4 hours. Occurred several times during the day. Does not radiate. The pain was severe, aggravated by meal and relieved by vomiting, associated with some bloating, flatulence, and belching. Patient does not have any risk factors for ulcerative disease. She was presented to outside emergency room where they did ultrasound that showed gallstone, but no evidence of acute cholecystitis. She also had a CT without contrast which also showed gallstone without evidence of cholecystitis. Her lab data: CBC was normal. Comprehensive panel was normal except her liver enzymes, ALT 130, AST 129, total bilirubin 1.3. Patient was evaluated at my office. We felt that her differential diagnosis either gastritis or gallstone disease especially with the abnormality of her liver function. My plan for her after I saw her to do a full liver workup to evaluate the increase in liver enzymes. We started on acid pump inhibitor and we scheduled her for upper endoscopy. On April 20, 2018, she had upper endoscopy which showed small hiatal hernia, very mild gastritis. So, with that finding, I recommended her to see a surgeon for further evaluation of her gallstone and perhaps cholecystectomy. However, while she was waiting to see the surgeon, patient had recurrent severe abdominal pain and was advised to come to the emergency room at [facility] and was admitted. She was evaluated by Dr. Matthew Christine and underwent laparoscopic cholecystectomy. PAST MEDICAL HISTORY: Just the gallstone disease. Surgically, she never had surgery prior to that. FAMILY HISTORY: Mother alive, she had breast cancer. Socially, she is unemployed. She is . She has 1 kid. She does not drink and does not smoke. SHE IS NOT ALLERGIC TO ANY MEDICATION. REVIEW OF SYSTEMS: Beside what is mentioned in her present illness, unremarkable. PHYSICAL EXAMINATION GENERAL: She is awake, alert, oriented, hemodynamically stable, and afebrile. HEENT: Normal sclerae. NECK: Supple. No node or mass. She has no . LUNGS: Clear to auscultation. HEART: Regular-regular rhythm. ABDOMEN: Not distended. Bowel sounds present. She had a tenderness on the epigastric area, but no signs of acute abdomen. CENTRAL NERVOUS SYSTEM: Motor function grossly intact. Patient will be followed post cholecystectomy while in the hospital. There is no other plan beside waiting for the progression of her liver function after the cholecystectomy. Job#: [id number]
--- NOTE | 2018-04-27 14:25 | History and Physical ---
HISTORY OF PRESENT ILLNESS: This is a 22-year-old female that was referred by Dr. Jacob from the clinic because of right upper quadrant pain. She was found to have acute cholecystitis. She was found to have elevated liver function test and possible UTI. She was admitted to the hospital. She just underwent a cholecystectomy by Dr. Christine. The patient is sleepy right now. REVIEW OF SYSTEMS: Unable to do it because the patient is sleeping after her surgery. PAST MEDICAL HISTORY: Apparently negative for any significant medical condition. Most of the history is received from the chart because the patient is sleepy right now after surgery. ALLERGIES: APPARENTLY NOT ALLERGIC TO ANY MEDICATIONS. SOCIAL HISTORY: We do not know if she smokes or drinks. PHYSICAL EXAMINATION HEART: Regular rhythm, normal S1 and S2 sounds. LUNGS: Clear bilaterally. ABDOMEN: Soft. Bowel sounds are decreased. Mild tenderness around the incision site. EXTREMITIES: No evidence of cyanosis, edema or trauma. VITAL SIGNS: Blood pressure 130/67, temperature 98.1, heart rate 56 per minute, respiratory rate 14 per minute, oxygen saturation 97%. LABS: On the blood work, BMP showed sodium 138, potassium 4.0, chloride 107, CO2 21, BUN 10, creatinine 0.66, glucose 90. On the CBC, white blood count 5.24, hemoglobin 11.4, hematocrit 33.3, platelet count 295,000. AST 214, ALT 545, total bilirubin 1.1, alkaline phosphatase 99. FINAL IMPRESSION 1. Acute and subacute cholecystitis status post laparoscopic cholecystectomy. 2. Elevated liver function tests. 3. Obesity. PLAN OF TREATMENT 1. Continue Zosyn 3.375 grams IV piggyback q.6 h. 2. Continue normal saline 100 mL an hour. 3. Continue morphine 4 mg IV q.4 h. as needed for pain. 4. Zofran 4 mg IV q.4 h. as needed for vomiting. 5. Toradol 30 mg IV q.6 h. as needed. 6. Also, Protonix 40 mg p.o. once a day. 7. Cedar 1 mg tablet q.4 h. as needed. 8. She is also on Dilaudid 1 mg IV q.3 h. as needed. 9. I am going to discontinue the morphine. 10. Discontinue the Toradol. 11. Followup by Dr. Matthew Christine, surgeon, who did the surgery and Dr. Russell Jacob, station manager. 12. We are going to continue monitoring the liver function tests very carefully. MRCP also was ordered. Job#: [id number]
== END 2018-04-24 13:50 | disposition home or self-care (01) ==
LOC: ER 18:22 → OBSVTOIN 22:07 → ERHOLD 22:07 → INTOOBSV 22:07 → IMCU 22:49 → MED/SURG 04-21 13:10
PROVIDERS: ADMIT Internal Medicine; ATTEND Internal Medicine
DX: K80.12 Calculus of gallbladder with acute and chronic cholecystitis without obstruction (principal); N39.0 Urinary tract infection, site not specified; E66.01 Morbid (severe) obesity due to excess calories; K76.0 Fatty (change of) liver, not elsewhere classified; Z68.38 Body mass index [BMI] 38.0-38.9, adult; R74.0 Nonspecific elevation of levels of transaminase and lactic acid dehydrogenase [LDH]; K29.70 Gastritis, unspecified, without bleeding; N83.201 Unspecified ovarian cyst, right side
CPT/HCPCS: 36415 ×4; 47562; 74181; 76705; 80053 ×4; 82150; 82390; 82728; 83540; 83690 ×2; 84466; 85025 ×4; 86039; 86255; 88304; 96361; C1766; G0378 ×5; J0500; J1100; J1170 ×4; J1885; J2001; J2250; J2270 ×3; J2405; J2543 ×5; J3490; J7030 ×5; Q9967

== ENCOUNTER 2018-04-26 04:18 | Inpatient (IN) | payer OTHER ==
[~2018-04-26] VITALS: Ht 160 cm; Wt 100.0 kg
--- OUTSIDE RECORDS SUMMARY | 2018-04-26 04:21 | XMS REPORT | Continuity of Care Document ---
Author Author [facility] Organization [facility] Address [address] [place] [address] Phone Unavailable Care Team Providers Care Electrical Unit Rebuilder Name Role Phone NO, PCP PCP Unavailable Insurance Providers Guarantor Edith Levy Address [id number] [place] [id number] Email [facility]ED [facility] Policy Number [id number] Subscriber's Name Edith Levy Relationship 18 Self / Same As Patient Effective Date 18 Advance Directives Directive Response Recorded Date/Time Does the patient have an advance directive? No 04/20/18 11:54pm If yes, is advance directive on file with [facility]? No 04/20/18 11:54pm If not on file with [facility] will patient provide a copy? Yes 04/20/18 11:54pm Do you have a Directive to Physician? No 04/20/18 9:28pm Do you have a Medical Power of Turpentine [employer]? No 04/20/18 9:28pm Do you have an out of hospital Do Not Resuscitate Order? No 04/20/18 9:28pm Do you have any special needs we should be aware of? No 04/20/18 9:28pm Do you have a support person here with you today? Yes 04/20/18 9:28pm Did patient receive Notice of Privacy Practices? Yes 04/20/18 9:28pm Did patient receive patient rights and responsibilities? Yes 04/20/18 9:28pm Problems Medical Problem Onset Date Status Abdominal pain Unknown Cholelithiasis Unknown Elevated LFTs Unknown Medications No medication information available. Social History Social History Problem Response Recorded Date/Time Onset Date Status Hx Psychiatric Problems Y - Anxiety 04/20/2018 11:54pm Not Applicable Not Applicable Hx Eating Disorder No 04/20/2018 11:54pm Not Applicable Not Applicable Hx Substance Use Disorder No 04/20/2018 11:54pm Not Applicable Not Applicable Hx Depression No 04/20/2018 11:54pm Not Applicable Not Applicable Hx Alcohol Use No 04/20/2018 11:54pm Not Applicable Not Applicable Hx Substance Use Treatment No 04/20/2018 11:54pm Not Applicable Not Applicable Hx Physical Abuse No 04/20/2018 11:54pm Not Applicable Not Applicable Smoking Status Start Date Stop Date Never Smoker Hospital Discharge Instructions No hospital discharge instruction information available. Plan of Care Discharge Date 04/24/18 1:50pm Disposition HOME, SELF-CARE Instructions/Education Provided Cholelithiasis Prescriptions See Medication Section Additional Instructions/Education OOB SOFT DIET KEFLEX/TYLENOL#3 F/U NEXT WEEK Functional Status Query Response Date Recorded Assistive Devices None April 20, 2018 11:48pm Ambulation Ability Independent April 20, 2018 11:48pm Toileting Ability Independent April 23, 2018 6:33pm Allergies, Adverse Reactions, Alerts No known allergies. Immunizations No immunization information available. Vital Signs Acute Vital Signs Vital Response Date/Time Temperature (Fahrenheit) 97.6 degrees F (97.6 - 99.5) 04/24/2018 8:00am Pulse Pulse Rate (adult) 77 bpm (60 - 90) 04/24/2018 8:00am Pulse Pulse Rate (adult) 82 bpm (60 - 90) 04/24/2018 8:00am Respiratory Rate 18 bpm (12 - 24) 04/24/2018 8:00am Blood Pressure 124/72 mm Hg 04/24/2018 8:00am Blood Pressure 137/80 mm Hg 04/24/2018 8:00am Height 5 ft 4 in 04/20/2018 11:54pm Weight 224.13 lb 04/21/2018 12:14am Body Mass Index 38.5 kg/m^2 04/21/2018 12:14am Results Laboratory Results Test Name Result Units Flags Reference Collection Date/Time Result Date/ Time Comments White Blood Count 5.55 x10e3/uL 4.8-10.8 04/24/2018 6:55am 04/24/2018 7 :24am Red Blood Count 3.65 x10e6/uL 3.6-5.1 04/24/2018 6:55am 04/24/2018 7: 24am Hemoglobin 10.8 g/dL L 12.0-16.0 04/24/2018 6:55am 04/24/2018 7:24am Hematocrit 31.9 % L 34.2-44.1 04/24/2018 6:55am 04/24/2018 7:24am Mean Corpuscular Volume 87.4 fL 81-99 04/24/2018 6:55am 04/24/2018 7: 24am Mean Corpuscular Hemoglobin 29.6 pg 28-32 04/24/2018 6:55am 04/24/2018 7:24am Mean Corpuscular Hemoglobin Concent 33.9 g/dL 31-35 04/24/2018 6:55am 04/24/2018 7:24am Red Cell Distribution Width 13.0 % 11.7-14.4 04/24/2018 6:55am 2017 7:24am Platelet Count 270 x10e3/uL 140-360 04/24/2018 6:55am 04/24/2018 7: 24am Neutrophils (%) (Auto) 61.3 % 38.7-80.0 04/24/2018 6:55am 04/24/2018 7: 24am Lymphocytes (%) (Auto) 23.4 % 18.0-39.1 04/24/2018 6:55am 04/24/2018 7: 24am Monocytes (%) (Auto) 8.3 % 4.4-11.3 04/24/2018 6:55am 04/24/2018 7: 24am Eosinophils (%) (Auto) 3.2 % 0.0-6.0 04/24/2018 6:55am 04/24/2018 7: 24am Basophils (%) (Auto) 0.7 % 0.0-1.0 04/24/2018 6:55am 04/24/2018 7:24am IM GRANULOCYTES % 3.1 % H 0.0-1.0 04/24/2018 6:55am 04/24/2018 7:24am Neutrophils # (Auto) 3.4 2.1-6.9 04/24/2018 6:55am 04/24/2018 7:24am Lymphocytes # (Auto) 1.3 1.0-3.2 04/24/2018 6:55am 04/24/2018 7:24am Monocytes # (Auto) 0.5 0.2-0.8 04/24/2018 6:55am 04/24/2018 7:24am Eosinophils # (Auto) 0.2 0.0-0.4 04/24/2018 6:55am 04/24/2018 7:24am Basophils # (Auto) 0.0 0.0-0.1 04/24/2018 6:55am 04/24/2018 7:24am Absolute Immature Granulocyte (auto 0.17 x10e3/uL H 0-0.1 04/24/2018 6: 55am 04/24/2018 7:24am Differential Total Cells Counted 100 04/24/2018 6:55am 04/24/2018 7 :52am Neutrophils % (Manual) 71 % 40-74 04/24/2018 6:55am 04/24/2018 7:52am Band Neutrophils % 4 % 04/24/2018 6:55am 04/24/2018 7:52am Lymphocytes % (Manual) 19 % 19-48 04/24/2018 6:55am 04/24/2018 7:52am Monocytes % (Manual) 3 % L 3.4-9.0 04/24/2018 6:55am 04/24/2018 7:52am Eosinophils % (Manual) 2 % 0-7 04/24/2018 6:55am 04/24/2018 7:52am Basophils % (Manual) 1 % 0-1.5 04/24/2018 6:55am 04/24/2018 7:52am Platelet Estimate ADEQUATE 04/24/2018 6:55am 04/24/2018 7:52am Platelet Morphology Comment NORMAL 04/24/2018 6:55am 04/24/2018 7: 52am Red Cell Morphology Comment NORMAL 04/24/2018 6:55am 04/24/2018 7: 52am Urine Color STRAW YELLOW 04/20/2018 6:51pm 04/20/2018 7:23pm Urine Clarity SL CLOUDY CLEAR 04/20/2018 6:51pm 04/20/2018 7:23pm Urine Specific [place] 1.030 H 1.010-1.025 04/20/2018 6:51pm 2017 7:23pm Urine pH 5 5 - 7 04/20/2018 6:51pm 04/20/2018 7:23pm Urine Leukocyte Esterase NEGATIVE NEGATIVE 04/20/2018 6:51pm 2017 7:23pm Urine Nitrite NEGATIVE NEGATIVE 04/20/2018 6:51pm 04/20/2018 7:23pm Urine Protein 2+ H NEGATIVE 04/20/2018 6:51pm 04/20/2018 7:23pm Urine Glucose (UA) NEGATIVE NEGATIVE 04/20/2018 6:51pm 04/20/2018 7: 23pm Urine Ketones 2+ H NEGATIVE 04/20/2018 6:51pm 04/20/2018 7:23pm Urine Urobilinogen 1 mg/dL 0.2 - 1 04/20/2018 6:51pm 04/20/2018 7:23pm Urine Bilirubin 2+ H NEGATIVE 04/20/2018 6:51pm 04/20/2018 7:23pm Urine Blood 3+ H NEGATIVE 04/20/2018 6:51pm 04/20/2018 7:23pm Urine WBC 0-5 /HPF 0-5 04/20/2018 6:51pm 04/20/2018 7:33pm Urine RBC 6-10 /HPF H 0-5 04/20/2018 6:51pm 04/20/2018 7:33pm Urine Bacteria MODERATE /HPF H NONE 04/20/2018 6:51pm 04/20/2018 7:33pm Urine Epithelial Cells MODERATE /LPF NONE 04/20/2018 6:51pm 04/20/2018 7:33pm Urine Transitional Epithelial Cells FEW H NONE 04/20/2018 6:51pm 04/20 7:33pm Urine Amorphous Sediment MODERATE H FEW 04/20/2018 6:51pm 04/20/2018 7 :33pm Sodium Level 136 mmol/L 136-145 04/24/2018 6:55am 04/24/2018 7:50am Potassium Level 3.8 mmol/L 3.5-5.1 04/24/2018 6:55am 04/24/2018 7:50am Chloride Level 104 mmol/L 98-107 04/24/2018 6:55am 04/24/2018 7:50am Carbon Dioxide Level 23 mmol/L 04/24/2018 6:55am 04/24/2018 7: 50am Anion Gap 12.8 mmol/L 8-04/24/2018 6:55am 04/24/2018 7:50am Blood Urea Nitrogen 5 mg/dL L 06-2204/24/2018 6:55am 04/24/2018 7:50am Creatinine 0.62 mg/dL 0.57-1.11 04/24/2018 6:55am 04/24/2018 7:50am BUN/Creatinine Ratio 8 05-2204/24/2018 6:55am 04/24/2018 7:50am Estimat Glomerular Filtration Rate > 60 ML/MIN 6004/24/2018 6:55am 7:50am Ranges were taken from the National Kidney Disease Education Program and the National Kidney Foundation literature. Reference ranges: 60 or greater: Normal 16-59 (for 3 consecutive months): Chronic kidney disease 15 or less: Kidney failure Glucose Level 98 mg/dL 74-118 04/24/2018 6:55am 04/24/2018 7:50am Calcium Level 9.2 mg/dL 8.4-10.2 04/24/2018 6:55am 04/24/2018 7:50am Iron Level 93 ug/dL 50-170 04/21/2018 5:50am 04/21/2018 2:01pm Total Iron Binding Capacity 357 ug/dL 261-478 04/21/2018 5:50am 2017 2:01pm Percent Iron Saturation 26 % 15-04/21/2018 5:50am 04/21/2018 2:01pm Transferrin 255 mg/dL 180-382 04/21/2018 5:50am 04/21/2018 2:01pm Ferritin 107.62 ng/mL 4.63-204.00 04/21/2018 5:50am 04/21/2018 2:11pm Total Bilirubin 2.2 mg/dL H 0.2-1.2 04/24/2018 6:55am 04/24/2018 7:50am Aspartate Amino Transf (AST/SGOT) 154 IU/L H 5-34 04/24/2018 6:55am 7:50am Alanine Aminotransferase (ALT/SGPT) 501 IU/L H 0-55 04/24/2018 6:55am 7:50am Total Protein 6.6 g/dL 6.5-8.1 04/24/2018 6:55am 04/24/2018 7:50am Albumin 3.2 g/dL L 3.5-5.0 04/24/2018 6:55am 04/24/2018 7:50am Globulin 3.4 g/dL 2.3-3.5 04/24/2018 6:55am 04/24/2018 7:50am Albumin/Globulin Ratio 0.9 0.8-2.0 04/24/2018 6:55am 04/24/2018 7: 50am Alkaline Phosphatase 136 IU/L 40-150 04/24/2018 6:55am 04/24/2018 7: 50am Creatine Kinase 80 IU/L 29-168 04/20/2018 6:52pm 04/20/2018 7:23pm Creatine Kinase MB 0.60 ng/mL 0-5.0 04/20/2018 6:52pm 04/20/2018 7: 31pm Troponin I < 0.001 ng/mL 0-0.300 04/20/2018 6:52pm 04/20/2018 7:31pm Amylase Level 38 U/L 25-125 04/24/2018 6:55am 04/24/2018 8:14am Lipase 54 U/L 8-78 04/24/2018 6:55am 04/24/2018 8:14am Human Chorionic Gonadotropin, Qual NEGATIVE NEGATIVE 04/20/2018 6: 52pm 04/20/2018 7:21pm Anti-Nuclear Antibody Screen Negative . 04/21/2018 2:35pm 04/22/2018 12:28pm Negative <1:80 Borderline 1:80 Positive >1:80 Performed at: [facility] [id number] Configuration Engineer: Chavo Philippe MD, Phone: [phone] Procedures Procedure Status Date Provider(s) Laparoscopic cholecystectomy Completed 04/21/18 STEPHEN LANG MD US gallbladder Active 04/18/[address] of abdomen and pelvis without contrast Active 04/18/18 MAHAD,EZEKIEL Pearce NP US gallbladder Active 04/20/18 EZEKIEL TOBIN NP Magnetic resonance cholangiopancreatography (MRCP) without contrast Active DALLAS ARMENTA MD Encounters Encounter Location Arrival/Admit Date Discharge/Depart Date Attending Provider Discharged Inpatient (obs) [facility] 04/20/18 10:07pm 1:50pm REE MCKEON MD Departed Emergency Room [facility] 04/18/18 1:33pm 4:40pm JENA OROURKE MD
[2018-04-26] MEDS ORDERED: PANTOPRAZOLE 40 MG 10ML VIAL IV STA (04:26)
[2018-04-26] MEDS ORDERED: SODIUM CHLORIDE 0.9% 1000ML 1,000 ML IV ONE (04:30)
[2018-04-26] MEDS ORDERED: ONDANSETRON HCL 4 MG ORAL DISINTEGRATING TAB PO ONE (04:30)
[2018-04-26 04:38] LABS: BASOPHILS % 0.5 % (0.0-1.0); EOSINOPHILS # (AUTO) 0.2 (0.0-0.4); HEMATOCRIT 35.3 % (34.2-44.1); HEMOGLOBIN 12.6 g/dL (12.0-16.0); LYMPHOCYTES # (AUTO) 1.1 (1.0-3.2); LYMPHOCYTES % 13.9 % (18.0-39.1); MEAN CORPUSCULAR HGB CONC 35.7 g/dL (31-35); MONOCYTES # (AUTO) 0.3 (0.2-0.8); NEUTROPHILS # (AUTO) 6.4 (2.1-6.9); NEUTROPHILS % 78.4 % (38.7-80.0); PLATELET COUNT 364 x10e3/uL (140-360); RED CELL DISTRIBUTION WIDTH 12.8 % (11.7-14.4)
[2018-04-26 04:39] LABS: PREGNANCY TEST, URINE NEGATIVE (NEGATIVE)
[2018-04-26 04:45] LABS: CLARITY,URINE CLOUDY (CLEAR); COLOR,URINE AMBER (YELLOW); KETONES,URINE 3+ (NEGATIVE); LEUKOCYTE ESTERASE ,URINE NEGATIVE (NEGATIVE); NITRITE,URINE NEGATIVE (NEGATIVE); PROTEIN,URINE DIPSTICK 2+ (NEGATIVE)
[2018-04-26 04:46] LABS: BACTERIA,URINE FEW /HPF; BILIRUBIN,URINE 3+ (NEGATIVE); EPITHELIAL CELLS,URINE FEW /LPF; RBC,URINE >50 /HPF (0-5); URINE UROBILINOGEN 4 mg/dL (0.2 - 1)
[2018-04-26 04:56] LABS: ALANINE AMINOTRANSFERASE 604 IU/L (0-55); ALBUMIN/GLOBULIN RATIO 0.9 (0.8-2.0); ALKALINE PHOSPHATASE 157 IU/L (40-150); AMYLASE 648 U/L (25-125); ANION GAP 17.6 mmol/L (8-16); BLOOD UREA NITROGEN 7 mg/dL (7-26); BUN/CREATININE RATIO 10 (6-25); CALCIUM 10.3 mg/dL (8.4-10.2); CARBON DIOXIDE 20 mmol/L (22-29); CHLORIDE 100 mmol/L (98-107); CREATININE, SERUM 0.73 mg/dL (0.57-1.11); EST GLOMERULAR FILTRATION RATE > 60 ML/MIN (60-); GLUCOSE 177 mg/dL (74-118); POTASSIUM 3.6 mmol/L (3.5-5.1); SODIUM 134 mmol/L (136-145)
[2018-04-26 04:58] LABS: ALBUMIN 3.9 g/dL (3.5-5.0); LIPASE > 1200 U/L (8-78)
[2018-04-26] MEDS ORDERED: HYDROMORPHONE 1MG/1ML INJ IV STA (05:03)
[2018-04-26] MEDS ORDERED: CEPHALEXIN500 MG PO (05:12)
[2018-04-26] MEDS ORDERED: PANTOPRAZOLE SO40 MG PO (05:12)
[2018-04-26] MEDS ORDERED: ZOFRAN ODT4 MG PO (05:13)
[2018-04-26] MEDS ORDERED: MACRODANTIN100 MG PO (05:13)
[2018-04-26] MEDS ORDERED: DICYCLOMINE HCL10 MG PO (05:14)
[2018-04-26] MEDS ORDERED: TYLENOL WITH C1 EACH PO (05:14)
[2018-04-26] MEDS ORDERED: HYDROMORPHONE 1MG/1ML INJ IV PRN (05:15)
[2018-04-26] MEDS: PIPER-TAZ 3.375 GM / NS 50ML IV SCH ×3 (05:26→22:05)
--- NOTE | 2018-04-26 05:37 | Diagnostic Imaging Report ---
ABDOMEN ACUTE SERIES W/PA CXR Clinical history: Abdominal pain Technique: AP view abdomen, supine and upright, PA view of the chest Comparison: None Findings: Abdomen: Right upper quadrant clips. Scattered skin boone. No differentially dilated loops of small or large bowel. Gas within the lateral abdominal soft tissues. Chest: Overpenetrated study. Otherwise unremarkable heart, mediastinum, lungs, and pleural spaces. Impression: 1. No evidence of obstruction. 2. Lateral abdominal/abdominal wall gas, presumably postprocedural. Signed by: Dr Bridget Aguilera MD on 04/26/2018 5:33 AM
[2018-04-26 06:47] VITALS: BP 139/94
[2018-04-26 07:22] VITALS: BP 139/94
[2018-04-26 08:00] VITALS: BP 139/94
[2018-04-26] MEDS: SODIUM CHLORIDE 0.9% 1000ML 1,000 ML IV SCH ×4 (08:02→22:05)
[2018-04-26] MEDS: PANTOPRAZOLE 40 MG 10ML VIAL IV SCH (08:02)
[2018-04-26] MEDS: HYDROMORPHONE 2MG/ML INJ IV PRN ×3 (09:45→20:59)
[2018-04-26] MEDS: ONDANSETRON HCL 4 MG ORAL DISINTEGRATING TAB PO PRN ×2 (10:00→17:22)
--- NOTE | 2018-04-26 11:55 | Consultation ---
DATE OF CONSULTATION: April 26, 2018 REASON FOR CONSULTATION: Pancreatitis. The patient is a pleasant, 20-year-old female without any significant past medical history, who has been having epigastric pain for about 2 months following her last . The patient was initially seen at [facility] Emergency Room on 04/18/2018. She was diagnosed with gallstones and UTI and discharged home to follow up with GI. The patient following the emergency room evaluation on April [address] Jaocb who on April 20 performed esophagogastroduodenoscopy. Findings were mild gastritis. The patient at that point was then referred to surgery for further treatment of her diagnosed gallstones. The patient immediately following the EGD became worse with more pain and then was admitted to [facility] on April 20. Surgery was consulted, and a cholecystectomy was performed on 04/21/2018. Her preoperative CT scan had revealed no ductal dilatation and gallstones. Her ultrasound revealed common bile duct of 4 mm and no ductal dilatation. Her amylase and lipase were normal. There was mild elevation of the transaminases the day of the procedure. The patient underwent the laparoscopic cholecystectomy uneventfully. An intraoperative cholangiogram was not performed due to the fact that technically it was not possible due to anatomic reasons. The patient postoperatively was admitted. Her liver chemistries were found to be somewhat elevated, and they were returning to normal when she was discharged from the hospital during that hospitalization on April 24, 2018. A cholangio -MRCP prior to discharge did not show any evidence of choledo- thiasis nor any evidence of pancreatitis on this study postoperatively. She now returns to the hospital complaining of epigastric pain again. Her liver chemistries revealed a bilirubin of 3.7, AST 223, ALT 604, alkaline phosphatase 157. Her amylase is 648, and the lipase is greater than 1200. White count is normal. Hematocrit is 35. Electrolytes are normal. PHYSICAL EXAMINATION: A 22-year-old female in no acute distress. Her BMI is 39.4. Physical examination reveals vital signs that are stable. Abdomen is soft and nondistended.Port incisions are healing well with boone in situ. IMPRESSION: Pancreatitis, likely due to passed gallstone or choledocholithiasis. PLAN: Treat the patient's pancreatitis medically. She most likely will require an ERCP once she has cooled off. GI, Dr. Jacob, is on the case, and we will be following the patient along.I have discussed the case with him. Thank you very much for this consultation. Job#: [id number] LUCY PENG
[2018-04-26 12:00] VITALS: BP 136/79
[2018-04-26] MEDS ORDERED: DICYCLOMINE HCL 10 MG CAP PO PRN (12:15)
--- NOTE | 2018-04-26 12:47 | Diagnostic Imaging Report ---
Magnetic resonance cholangiopancreatography Clinical History: Abdominal pain and nausea for 4 days. Evaluate for choledocholithiasis/retained stones in the bile duct. Comparison: MRCP without contrast dated 04/22/2018. Technique: Multiplanar, multisequence MRCP was performed, with sequences including coronal turbo spin-echo T1-weighted scans, [facility] MRCP scans, coronal spin, coronal MPR 2, SMRCP 3D HR, [facility] MRCP CARPIO. Coronal FIESTA. Axial Asset T1. IV Contrast: None Oral Contrast: None Medications: None Discussion: LOWER THORAX: Unremarkable. HEPATOBILIARY: Mild decrease in signal intensity of the hepatic parenchyma T1-weighted out of phase scans, suggestive of mild steatosis. No focal hepatic lesions. Mild diffuse dilatation of the entire common bile duct and common hepatic duct up to 1.1 cm in diameter. There is mild central intrahepatic biliary dilatation. GALLBLADDER: Surgically absent. SPLEEN: No splenomegaly. PANCREAS: The pancreatic head appears prominent on today's exam on coronal fast image 25 series 6, associated with small volume peripancreatic fluid fluid. No focal masses or ductal dilatation. ADRENALS: No adrenal nodules KIDNEYS/URETERS: No hydronephrosis. No cystic or solid mass lesions. No stones. GI TRACT: No abnormal distention, wall thickening, or evidence of bowel obstruction. Appendix is normal. LYMPH NODES: No lymphadenopathy. VESSELS: No aneurysm dilatation. PERITONEUM / RETROPERITONEUM: Trace volume fluid in the peripancreatic region and gallbladder fossa without likely to fluid collections. BONES: Unremarkable. SOFT TISSUES: Unremarkable. Incidental note is made of a 2.1 cm follicular cyst in the right ovary: No follow-up or workup warranted. IMPRESSION: 1. No evidence of choledocholithiasis. Mild intra and extrahepatic biliary dilatation. 2. The pancreatic head appears somewhat prominent on today's exam, associated with mild peripancreatic fluid, a nonspecific finding, however, it appears different compared to the prior examination. Given patient's symptomatology, consider correlation with serum lipase and amylase to exclude mild edematous pancreatitis. 3. Status post cholecystectomy. Signed by: Dr. Moisés Olivier M.D. on 04/26/2018 12:43 PM
--- NOTE | 2018-04-26 12:59 | History and Physical ---
HISTORY OF PRESENT ILLNESS: This is a 22-year-old female with past medical history positive for recent cholecystectomy. Patient was discharged on Tuesday and came today because of severe abdominal pain especially in the epigastric area. Apparently the lipase was very high, and there was concern about pancreatitis. REVIEW OF SYSTEMS CARDIOVASCULAR: No chest pain or palpitations. RESPIRATORY: No shortness of breath and no cough. GASTROINTESTINAL: She had nausea, vomiting and epigastric pain. No diarrhea. No black stools. No blood in the stools. No vomiting blood. GENITOURINARY: No frequency. No dysuria. ALLERGIES: NOT ALLERGIC TO ANY MEDICATION. SOCIAL HISTORY: She does not smoke and does not drink. PAST SURGICAL HISTORY: Status post recent cholecystectomy. PHYSICAL EXAMINATION VITAL SIGNS: Blood pressure is 139/94. Temperature 96.3. Heart rate 73 per minute. Respiratory rate is 18 per minute. Oxygen saturation 96%. HEART: Regular rhythm. Normal S1, S2 sounds. LUNGS: Clear bilaterally. ABDOMEN: Soft. She has epigastric tenderness. No distention. No visceromegaly. EXTREMITIES: No evidence of cyanosis, edema or trauma. LABS: On the blood work, BMP with sodium 134, potassium 3.6, chloride 100, CO2 20, BUN 7, creatinine 0.73, glucose 177. CBC: White blood count 8.18, hemoglobin 12.6, hematocrit 35.3, platelet count 364,000. AST is elevated at 223. ALT 604. Total bilirubin is 3.7. Alkaline phosphatase 157. FINAL IMPRESSION 1. Possible acute pancreatitis. 2. Elevated liver function test. 3. Vomiting. 4. Hyponatremia. 5. Hypertension. 6. Obesity. PLAN OF TREATMENT 1. Continue n.p.o. status. 2. Continue IV fluids at 175 mL an hour. 3. Zosyn 3.375 g IV piggyback q.8 h. 4. Zofran 4 mg IV q.6 h. as needed. 5. Protonix 40 mg IV daily. 6. Dilaudid 1 mg IV q.4 h. as needed. 7. Consultations are going to be with Dr. Matthew Christine, surgeon, who performed the cholecystectomy, and Dr. Russell Jacob, dry house attendant, also. 8. We are going to recheck CMP and lipase level tomorrow. MRCP has been ordered for today and also CT of the abdomen and pelvis with contrast to rule out pancreatitis. Patient is not , also. Job#: [id number] MH
[2018-04-26 16:00] VITALS: BP 139/86
--- NOTE | 2018-04-26 16:36 | Diagnostic Imaging Report ---
EXAM: CT Abdomen and Pelvis WITHOUT contrast INDICATION: Elevated LFTs. Pancreatitis. COMPARISON: CT abdomen and pelvis without contrast dated 04/18/2018. TECHNIQUE: Abdomen and pelvis were scanned utilizing a multidetector helical scanner from the lung base to the pubic symphysis without administration of IV contrast. Absence of intravenous contrast decreases sensitivity for detection of focal lesions and vascular pathology. Coronal and sagittal reformations were obtained. Routine protocol was performed. IV CONTRAST: None. Intravenous contrast was withheld due to history of contrast allergy. Suggest allergy premedication prior to future CT examinations with contrast. ORAL CONTRAST: Water RADIATION DOSE: Total DLP: 776.96 mGy*cm Estimated effective dose: (DLP x 0.015 x size factor) mSv COMPLICATIONS: None FINDINGS: LINES and TUBES: None. LOWER THORAX: Unremarkable HEPATOBILIARY: Diffuse low-attenuation of the hepatic parenchyma consistent with steatosis, with focal fatty sparing about the gallbladder fossa. No focal hepatic lesions. There is mild dilatation of the bile duct diffusely measuring up to 1.1 centimeters in diameter. GALLBLADDER: Status post cholecystectomy. SPLEEN: No splenomegaly. PANCREAS: There is mild diffuse prominence of the pancreatic head with heterogeneous decreased attenuation compared to the prior examination, associated with peripancreatic fat stranding and trace volume fluid suggestive of acute pancreatitis. No focal masses or ductal dilatation. ADRENALS: No adrenal nodules KIDNEYS/URETERS: No hydronephrosis. No cystic or solid mass lesions. No stones. GI TRACT: No abnormal distention, wall thickening, or evidence of bowel obstruction. Appendix is normal. PELVIC ORGANS/BLADDER: 3.0 cm low-attenuation lesion in the right adnexa suggestive of a follicular cyst. Trace volume of free fluid within the pelvis. There is a small volume of free intraperitoneal air, particularly in the lower quadrants and lower anterior abdomen and pelvis suggestive of postoperative pneumoperitoneum. LYMPH NODES: No lymphadenopathy. VESSELS: Unremarkable. PERITONEUM / RETROPERITONEUM: There is a small volume of free fluid. There are small BONES: Unremarkable. SOFT TISSUES: Postoperative changes involving the umbilical region and right lower quadrant related to recent laparoscopic procedure. IMPRESSION: 1. Findings suggestive of acute interstitial pancreatitis not well evaluated in this examination without contrast. 2. Status post cholecystectomy. Small volume of postoperative pneumoperitoneum. Signed by: Dr. Moisés Olivier M.D. on 04/26/2018 4:32 PM
[2018-04-26] MEDS: NITROFURANTOIN 50 MG CAP PO SCH (17:22)
[2018-04-26] MEDS ORDERED: ONDANSETRON HCL 4 MG ORAL DISINTEGRATING TAB PO SCH (18:00)
[2018-04-26 20:00] VITALS: BP 125/76
[2018-04-27] VITALS: BP 129/70
[2018-04-27 04:00] VITALS: BP 112/70
[2018-04-27] MEDS: SODIUM CHLORIDE 0.9% 1000ML 1,000 ML IV SCH ×4 (04:25→21:13)
[2018-04-27] MEDS: ONDANSETRON HCL 4 MG ORAL DISINTEGRATING TAB PO PRN (04:32)
[2018-04-27] MEDS: HYDROMORPHONE 2MG/ML INJ IV PRN ×3 (04:32→18:44)
[2018-04-27] MEDS: PIPER-TAZ 3.375 GM / NS 50ML IV SCH ×3 (06:00→22:01)
[2018-04-27 06:01] LABS: BASOPHILS % 0.1 % (0.0-1.0); EOSINOPHILS # (AUTO) 0.2 (0.0-0.4); EOSINOPHILS % 2.3 % (0.0-6.0); HEMATOCRIT 31.3 % (34.2-44.1); HEMOGLOBIN 10.8 g/dL (12.0-16.0); LYMPHOCYTES # (AUTO) 0.8 (1.0-3.2); LYMPHOCYTES % 10.5 % (18.0-39.1); MEAN CORPUSCULAR HEMOGLOBIN 30.1 pg (28-32); MEAN CORPUSCULAR HGB CONC 34.5 g/dL (31-35); MEAN CORPUSCULAR VOLUME 87.2 fL (81-99); MONOCYTES # (AUTO) 0.4 (0.2-0.8); MONOCYTES % 4.5 % (4.4-11.3); NEUTROPHILS # (AUTO) 6.3 (2.1-6.9); NEUTROPHILS % 81.7 % (38.7-80.0); PLATELET COUNT 295 x10e3/uL (140-360); RED BLOOD COUNT 3.59 x10e6/uL (3.6-5.1); RED CELL DISTRIBUTION WIDTH 13.4 % (11.7-14.4)
[2018-04-27 06:37] LABS: ALANINE AMINOTRANSFERASE 473 IU/L (0-55); ALBUMIN 3.2 g/dL (3.5-5.0); ALBUMIN/GLOBULIN RATIO 0.9 (0.8-2.0); ALKALINE PHOSPHATASE 146 IU/L (40-150); AMYLASE 1168 U/L (25-125); ANION GAP 10.5 mmol/L (8-16); BLOOD UREA NITROGEN 5 mg/dL (7-26); BUN/CREATININE RATIO 8 (6-25); CARBON DIOXIDE 24 mmol/L (22-29); CHLORIDE 102 mmol/L (98-107); CREATININE, SERUM 0.59 mg/dL (0.57-1.11); EST GLOMERULAR FILTRATION RATE > 60 ML/MIN (60-); GLUCOSE 133 mg/dL (74-118); POTASSIUM 3.5 mmol/L (3.5-5.1); SODIUM 133 mmol/L (136-145)
[2018-04-27 07:22] LABS: LIPASE 3411 U/L (8-78)
[2018-04-27 08:00] VITALS: BP 110/70
[2018-04-27] MEDS: PANTOPRAZOLE 40 MG 10ML VIAL IV SCH (08:53)
[2018-04-27] MEDS: NITROFURANTOIN 50 MG CAP PO SCH ×2 (08:53→15:57)
[2018-04-27] MEDS ORDERED: POTASSIUM CHLORIDE 20 MEQ TAB CR PO STA (09:52)
--- NOTE | 2018-04-27 10:22 | Progress Note ---
DATE: April 27, 2018 INTERNAL MEDICINE PROGRESS NOTE SUBJECTIVE: Patient is doing well. Less pain than before. PHYSICAL EXAMINATION: HEART: Shows regular rhythm. Normal S1 and S2 sounds. LUNGS: Clear bilaterally. ABDOMEN: Soft. Very mild tenderness in epigastric area. VITAL SIGNS: Blood pressure 120/70, temperature 97.6, heart rate 86 per minute, respiratory rate is 18 per minute, oxygen saturation 96%. LABS: On the BMP, sodium 133, potassium 3.5, chloride 102, CO2 24, BUN 5, creatinine 0.59, glucose 133. On the CBC, white blood count 7.71, hemoglobin 10.8, hematocrit 31.3, platelet count 295,000. AST 66, ALT 473, total bilirubin 3.3, alkaline phosphatase 146. MRCP showed no evidence of any choledocholithiasis. CT of the abdomen showed evidence of mild pancreatitis. FINAL IMPRESSION: 1. Acute pancreatitis, most likely related to gallstones. 2. Mild anemia. 3. Hypokalemia. 4. Elevated liver function tests. PLAN OF TREATMENT: Continue n.p.o. status. Continue IV fluids. Continue Zosyn 3.375 g IV piggyback q.8h., Zofran 4 mg IV q.6h., Protonix 40 mg daily, Bentyl 10 mg q.4h. as needed, Dilaudid 1 mg q.4h. as needed. Dr. Jacob is on the case for gastroenterology, Dr. Matthew Christine from surgery. Continue monitoring status of the patient. She is feeling better today. The liver function tests are better. The lipase went up from 1200 to 3411, the amylase went up from 648 to 1168. So we are going to repeat another CMP, another lipase and amylase level and go from there. Job#: [id number]
[2018-04-27] MEDS ORDERED: POTASSIUM CHLORIDE 20MEQ/100ML 200 ML IV ONE (11:00)
[2018-04-27 12:00] VITALS: BP 119/70
--- NOTE | 2018-04-27 12:02 | Progress Note ---
DATE: April 27, 2018 Ms. Paulino today is doing much better. She is still recovering from gallstone pancreatitis, even though she had her gallbladder removed, but I still feel that the attributing factor for her recent pancreatitis is a stone in the common bile duct. She had an MRI cholangiogram twice, one after her surgery last Tuesday and one when she presented again; but on both tests, they did not see any stone. She is awake. She is alert today. She says she is more comfortable. She said her pain is much less than before. EXAM: Hemodynamically stable. Blood pressure 110/70, respiratory rate 18, pulse 75, temperature 98. She is still n.p.o. On physical exam, her abdomen is soft, minimally tender. LAB TESTS: Platelets 295, hematocrit 31, hemoglobin 10, white cell count 7. BUN and creatinine are normal. Sodium 133, potassium 3.5, calcium 9. Liver panel: Her total bilirubin is 3.3, was 3.7 yesterday. Her AST is 166, was 223 yesterday. Her ALT is 473, was 600 yesterday. Her alk phos is 146, was 167 yesterday. However, her amylase and lipase are a bit worse than yesterday. Her amylase is about 1,000 and lipase 3,000. PLAN: My plan is to continue the current care, n.p.o. and IV hydration. Either we can request an ERCP done at out hospital or working on transferring her to the [facility] for possible ERCP. Job#: [id number]
[2018-04-27 16:00] VITALS: BP 105/63
[2018-04-27 20:05] VITALS: BP 125/85
[2018-04-28] VITALS (7 sets, daily range): BP systolic 103–131; BP diastolic 64–86
[2018-04-28] MEDS: ONDANSETRON HCL 4 MG ORAL DISINTEGRATING TAB PO PRN ×2 (00:34→04:48)
[2018-04-28] MEDS: HYDROMORPHONE 2MG/ML INJ IV PRN ×5 (00:34→22:02)
[2018-04-28] MEDS: SODIUM CHLORIDE 0.9% 1000ML 1,000 ML IV SCH ×4 (04:47→21:33)
[2018-04-28] MEDS: PIPER-TAZ 3.375 GM / NS 50ML IV SCH ×3 (05:14→21:33)
[2018-04-28 06:45] LABS: ALANINE AMINOTRANSFERASE 357 IU/L (0-55); ALBUMIN/GLOBULIN RATIO 0.9 (0.8-2.0); ALKALINE PHOSPHATASE 169 IU/L (40-150); ANION GAP 10.7 mmol/L (8-16); BLOOD UREA NITROGEN 7 mg/dL (7-26); BUN/CREATININE RATIO 12 (6-25); CARBON DIOXIDE 23 mmol/L (22-29); CHLORIDE 101 mmol/L (98-107); CREATININE, SERUM 0.57 mg/dL (0.57-1.11); EST GLOMERULAR FILTRATION RATE > 60 ML/MIN (60-); GLUCOSE 85 mg/dL (74-118); LIPASE 224 U/L (8-78); POTASSIUM 3.7 mmol/L (3.5-5.1); SODIUM 131 mmol/L (136-145)
[2018-04-28] MEDS: PANTOPRAZOLE 40 MG 10ML VIAL IV SCH (09:00)
--- NOTE | 2018-04-28 09:47 | Consultation ---
DATE OF CONSULTATION: April 26, 2018 Ms. Paulino is a young 22-year-old lady who was in the hospital a few days ago after she came in with abdominal pain, and underwent laparoscopic cholecystectomy by Dr. Matthew Christine. She was discharged to come back again with recurrence of her abdominal pain, severe nausea and vomiting, and unable to tolerate her diet. On admission in the emergency room, she was found to have acute pancreatitis and was admitted for further workup. During her last admission after her laparoscopic cholecystectomy, MRI cholangiogram was obtained and revealed no stone in the common bile duct. The patient was discharged, but unfortunately now she has an acute pancreatitis following her recent surgery more probably induced by a gallstone. She is comfortable. Her pain is controlled with medication. No more nausea or vomiting. I was asked to see her for assessment. MEDICATIONS: Currently, Protonix, Zosyn, Zofran, and Dilaudid. ALLERGIES: SHE IS ALLERGIC TO NOTHING. PAST MEDICAL HISTORY: Just the gallstone disease. SURGERIES: She had recent laparoscopic cholecystectomy. FAMILY HISTORY: Consistent with breast cancer. SOCIAL: She is unemployed and . Has 1 child. Does not drink or smoke. REVIEW OF SYSTEMS: Unremarkable. PHYSICAL EXAMINATION GENERAL: Awake, alert and oriented. VITALS: Hemodynamically stable. Afebrile. Pulse 79. NECK: Supple. LUNGS: Clear to auscultation. HEART: Regular rate and rhythm. ABDOMEN: Overweight, tender, but no acute signs. EXTREMITIES: No edema. LAB TESTS: BUN 7, creatinine 0.73, sodium 134, potassium 3.6, calcium 10, total bilirubin 3.7, AST 223, ALT 604, alk phos 154, albumin 3.5, amylase 600, lipase 1200. Her white cell count is 8.8, hematocrit 33.9. IMPRESSION: Acute pancreatitis following recent laparoscopic cholecystectomy: Most likely related to gallstone though the MRI cholangiogram did not reveal a stone. She probably either passed the stone, or she still has a small stone undetected by the MRI in the common bile duct. PLAN: Keep her n.p.o. for now. Continue IV hydration. Continue monitoring her. May consider repeating the MRI cholangiogram, and also to consider an ERCP. Side note, when she presented to my office, I did a full liver workup on her, which included hepatitis profile, TIMOTHY, antimitochondrial antibody, antismooth muscle antibody, alpha 1 antitrypsin, stereoplasm, iron study, TSH, fasting lipid, and all came back to be normal. Job#: [id number] RI
--- NOTE | 2018-04-28 19:41 | Progress Note ---
DATE: April 28, 2018 INTERNAL MEDICINE PROGRESS NOTE SUBJECTIVE: Patient is doing a lot better. Pain is practically gone. The lipase is significantly better today. PHYSICAL EXAM: VITAL SIGNS: Blood pressure 126/75, temperature 97.5, heart rate 66 per minute, respiratory rate is 19 per minute, oxygen saturation 98%. HEART: Regular rhythm. Normal S1, S2 sounds. LUNGS: Clear bilaterally. ABDOMEN: Soft, nontender, nondistended. No visceromegaly. EXTREMITIES: Show no evidence of cyanosis or trauma. LAB WORK: On the BMP, sodium 131, potassium 3.7, chloride 101, CO2 23, BUN 7, creatinine 0.57, glucose 85. On the CBC, white blood count 7.71, hemoglobin 10.8, hematocrit 31.3, platelet count 295,000. AST 90, ALT 357, total bilirubin 2.0, alkaline phosphatase 169, lipase is 224, significantly improved compared to before. FINAL IMPRESSION: 1. Acute gallstones pancreatitis. 2. Status post cholecystectomy. 3. Anemia of chronic disease. 4. Epigastric pain which is resolved. PLAN OF TREATMENT: Continue n.p.o., IV fluids, IV Zosyn. Continue Protonix 40 mg daily, Tylenol 325 mg q.4 h. as needed, Bentyl 10 mg q.4 h. as needed, Dilaudid 1 mg IV q.4 h. as needed, Zosyn 3.375 g IV every 8 hours, Zofran 4 mg IV q.6 h., normal saline 175 mL an hour. Lipase tomorrow. Hopefully, we can start liquid diet tomorrow. Job#: [id number]
[2018-04-29] VITALS (7 sets, daily range): BP systolic 109–130; BP diastolic 6–76
[2018-04-29] MEDS: HYDROMORPHONE 2MG/ML INJ IV PRN ×2 (02:17→11:39)
[2018-04-29] MEDS: SODIUM CHLORIDE 0.9% 1000ML 1,000 ML IV SCH ×3 (05:20→13:14)
[2018-04-29] MEDS: PIPER-TAZ 3.375 GM / NS 50ML IV SCH ×3 (05:32→21:35)
[2018-04-29 07:42] LABS: ALANINE AMINOTRANSFERASE 297 IU/L (0-55); ALBUMIN 2.9 g/dL (3.5-5.0); ALBUMIN/GLOBULIN RATIO 0.8 (0.8-2.0); ALKALINE PHOSPHATASE 168 IU/L (40-150); ANION GAP 13.8 mmol/L (8-16); BLOOD UREA NITROGEN 7 mg/dL (7-26); BUN/CREATININE RATIO 12 (6-25); CALCIUM 8.9 mg/dL (8.4-10.2); CARBON DIOXIDE 22 mmol/L (22-29); CHLORIDE 102 mmol/L (98-107); CREATININE, SERUM 0.59 mg/dL (0.57-1.11); EST GLOMERULAR FILTRATION RATE > 60 ML/MIN (60-); GLUCOSE 71 mg/dL (74-118); LIPASE 156 U/L (8-78); POTASSIUM 3.8 mmol/L (3.5-5.1); SODIUM 134 mmol/L (136-145)
[2018-04-29] MEDS: PANTOPRAZOLE 40 MG 10ML VIAL IV SCH (08:41)
--- NOTE | 2018-04-29 23:55 | Progress Note ---
DATE: April 29, 2018 INTERNAL MEDICINE PROGRESS NOTE SUBJECTIVE: Patient is complaining of vaginal bleed due to her menstrual period irregular and sometimes heavy. Otherwise, no abdominal pain, no vomiting. PHYSICAL EXAMINATION: VITAL SIGNS: Blood pressure 121/68, temperature 97.3, heart rate 57 per minute, respiratory rate 18 per minute, oxygen saturation 97%. HEART: Shows regular rhythm. Normal S1 and S2 sounds. LUNGS: Clear bilaterally. ABDOMEN: Soft. No tenderness, no distention, no visceromegaly. EXTREMITIES: Showed no evidence of cyanosis, edema, or trauma. LABS: On the BMP: Sodium 134, potassium 3.8, chloride 102, CO2 22, BUN 7, creatinine 0.59, glucose 71. On the CBC: White blood count 7.71, hemoglobin 10.8, hematocrit 31.3, platelet count 295,000. AST 89, ALT 297, total bilirubin 1.8, alkaline phosphatase 168. FINAL IMPRESSION: 1. Acute gallstone pancreatitis, which is finally resolving. 2. Status post cholecystectomy. 3. Vaginal bleed. 4. Mild anemia. PLAN OF TREATMENT: We are going to upgrade the diet to low-fat diet. Continue with IV fluids, Zosyn 3.375 g IV piggyback q.8h., Zofran 4 mg IV q.6h. as needed, Protonix 40 mg daily, Tylenol 325 mg q.4h. as needed, Bentyl 10 mg q.4h., Dilaudid 1 mg IV q.4h. as needed. We are going to repeat a CBC, CMP, and lipase level tomorrow. We are going to get a gynecology consult also because she is concerned about the vaginal bleed. Tentative discharge tomorrow. Job#: [id number]
[2018-04-30] MEDS: HYDROMORPHONE 2MG/ML INJ IV PRN ×3 (01:36→18:41)
[2018-04-30 04:00] VITALS: BP 95/61
[2018-04-30] MEDS: PIPER-TAZ 3.375 GM / NS 50ML IV SCH ×3 (05:26→22:08)
[2018-04-30] MEDS: ACETAMINOPHEN 325 MG TAB PO PRN (06:13)
[2018-04-30 06:22] LABS: BASOPHILS % 0.5 % (0.0-1.0); EOSINOPHILS # (AUTO) 0.2 (0.0-0.4); EOSINOPHILS % 3.8 % (0.0-6.0); HEMATOCRIT 28.3 % (34.2-44.1); HEMOGLOBIN 9.8 g/dL (12.0-16.0); LYMPHOCYTES # (AUTO) 1.4 (1.0-3.2); LYMPHOCYTES % 24.5 % (18.0-39.1); MEAN CORPUSCULAR HGB CONC 34.6 g/dL (31-35); MEAN CORPUSCULAR VOLUME 86.5 fL (81-99); MONOCYTES # (AUTO) 0.4 (0.2-0.8); MONOCYTES % 6.9 % (4.4-11.3); NEUTROPHILS # (AUTO) 3.6 (2.1-6.9); NEUTROPHILS % 62.7 % (38.7-80.0); PLATELET COUNT 292 x10e3/uL (140-360); RED BLOOD COUNT 3.27 x10e6/uL (3.6-5.1); RED CELL DISTRIBUTION WIDTH 13.2 % (11.7-14.4)
[2018-04-30 06:41] LABS: ALANINE AMINOTRANSFERASE 289 IU/L (0-55); ALBUMIN/GLOBULIN RATIO 0.9 (0.8-2.0); ALKALINE PHOSPHATASE 156 IU/L (40-150); ANION GAP 12.5 mmol/L (8-16); BLOOD UREA NITROGEN 7 mg/dL (7-26); BUN/CREATININE RATIO 11 (6-25); CALCIUM 9.4 mg/dL (8.4-10.2); CARBON DIOXIDE 24 mmol/L (22-29); CHLORIDE 104 mmol/L (98-107); CREATININE, SERUM 0.61 mg/dL (0.57-1.11); EST GLOMERULAR FILTRATION RATE > 60 ML/MIN (60-); GLUCOSE 111 mg/dL (74-118); POTASSIUM 3.5 mmol/L (3.5-5.1); SODIUM 137 mmol/L (136-145)
[2018-04-30 07:39] VITALS: BP 95/61
[2018-04-30 08:17] VITALS: BP 103/58
[2018-04-30] MEDS: PANTOPRAZOLE 40 MG 10ML VIAL IV SCH (08:51)
--- NOTE | 2018-04-30 09:44 | Consultation ---
DATE OF CONSULTATION: April 29, 2018 CHIEF COMPLAINT: Acute pancreatitis. HISTORY OF PRESENT ILLNESS: This is a very pleasant, 22-year-old lady coming in with abdominal pain. Pain for the last 5 days. The patient had gallbladder surgery last week. She had elevated liver tests, amylase and lipase. Symptoms are consistent with CBD stone and acute pancreatitis. She had an MRCP done a couple of days ago that was negative for CBD stones. PAST MEDICAL HISTORY: Obesity. SURGICAL HISTORY: Gallbladder surgery. MEDICATIONS: Protonix, Zosyn, Zofran, Dilaudid. FAMILY HISTORY: Noncontributory. REVIEW OF SYSTEMS: Negative, except for pain. PHYSICAL EXAMINATION VITAL SIGNS: Blood pressure 140/80, pulse 80, temperature 98. GENERAL: A well nourished, lady, in no distress. ABDOMEN: Soft, nontender. EXTREMITIES: No edema. ASSESSMENT: Acute pancreatitis. LFTs are trending down. MRCP is negative. She may have passed the stone. I recommend at this time repeat LFTs and clear liquid diet. Depending on the findings on lab work tomorrow, we will decide about the need for ERCP. If the LFTs continue to trend down to normal, an ERCP will not be necessary. Job#: [id number]
--- NOTE | 2018-04-30 09:48 | Progress Note ---
DATE: April 28, 2018 Ms. Paulino continues to improve regarding her acute pancreatitis. Today she is comfortable. She is complaining of less abdominal discomfort. She required less pain medication. No nausea, no vomiting, no fever. On exam, her abdomen is soft, with no acute signs. Her liver panel, including lipase, continues to improve compared to the day before. Her white cell count is normal. She is still n.p.o. We will continue the conservative care and observation of her liver functions. Dr. Odom, the spindle maker, was consulted regarding possible ERCP. Job#: [id number]
--- NOTE | 2018-04-30 09:51 | Progress Note ---
DATE: April 29, 2018 Ms. Paulino continues to improve. Today she is more comfortable, less abdominal pain. She started feeling hungry and is asking about when she can eat. On physical exam, her temperature is 97, pulse 57, blood pressure 121/68. Total bilirubin is down to 1.8. AST down to 89. ALT down to 297. Alk phos down to 169. Lipase is 156. Her BUN and creatinine are normal. Sodium and potassium are normal. Will continue current care. We will start her tomorrow morning on a liquid diet. So far, no need for an ERCP as the liver functions continue to improve. Job#: [id number] LUCY
--- NOTE | 2018-04-30 10:03 | Diagnostic Imaging Report ---
EXAM: Transabdominal and Transvaginal Pelvic Ultrasound INDICATION: \S\VAGINAL BLEEDING \S\Y COMPARISON: CT abdomen and pelvis 04/26/2018 TECHNIQUE: Grayscale transverse and sagittal transabdominal and transvaginal images were obtained of the pelvis. Transvaginal imaging was medically necessary to better evaluate the endometrium and the adnexa. CLINICAL HISTORY: 22 year old A0; last menstrual period: 04/05/2018. FINDINGS: Uterus Orientation: Normal Size: 7.1 x 4.0 x 6.0 cm, Normal Mass: None Cervix: Few Nabothian cysts Endometrium: Thickness: 1.0 cm, Normal. Small amount of fluid in the endometrial canal likely related to the patient by degenerative bleeding. Appearance: Homogeneous echotexture without focal thickening. Right ovary: Size: 4.3 x 3.4 x 4.5 cm Mass/Cyst: Multiple follicles. 3.2 x 2.8 x 2.8 cm anechoic cyst with mild internal debris suggestive of hemorrhagic cyst. Left ovary: Size: 3.1 x 2.0 x 2.7 cm Mass/Cyst: Multiple follicles. Adnexa: Normal Cul-de-sac: No free fluid IMPRESSION: Multiple bilateral ovarian follicles. Right ovarian cyst with mild internal debris measuring up to 3.2 cm suggestive of hemorrhagic cyst. No free fluid. Small amount of fluid in the endometrial canal likely related to this patient's vaginal bleeding. Endometrial stripe is normal measuring 1 cm. Signed by: Dr. Tiffani Benton M.D. on 04/30/2018 9:59 AM
[2018-04-30] MEDS: ONDANSETRON HCL 4 MG ORAL DISINTEGRATING TAB PO PRN (13:15)
[2018-04-30 16:00] VITALS: BP 109/72
[2018-04-30 18:25] LABS: FERRITIN 84.42 ng/mL (4.63-204.00)
[2018-04-30 20:00] VITALS: BP 119/81
[2018-04-30 20:11] VITALS: BP 119/81
[2018-05-01] VITALS (10 sets, daily range): BP systolic 93–155; BP diastolic 52–70
--- NOTE | 2018-05-01 00:56 | Progress Note ---
DATE: April 30, 2018 SUBJECTIVE: Ms. Paulino is continued to improve. She is asymptomatic, very minimal abdominal pain. She tolerated her diet well. However, she started having vaginal bleed which had been recurrent problem and Dr. Stiles was consulted. Also, she was evaluated by Dr. Back and still possibly she may have an ERCP tomorrow. Her liver function continued to improve, but continued to be remarkably elevated. Her total bilirubin is still 1.7 even though it is less than yesterday. AST 100, less than yesterday. ALT 289, less than yesterday. Alk phos 156 and lipase about 200. Her BUN and creatinine normal. Sodium and potassium normal. Her white cell count 5.7, hemoglobin 9.8, hematocrit 28, and platelet 292,000. PHYSICAL EXAMINATION: VITAL SIGNS: Temperature 97, pulse 55, blood pressure 103/58. ABDOMEN: Soft, nontender. No acute sign. On my side, there is nothing to add today to her care except slowly upgrade her diet and initiate anemia workup. Will follow her liver enzymes tomorrow again and see if she may need an ERCP. Job#: [id number]
--- NOTE | 2018-05-01 01:16 | Consultation ---
DATE OF CONSULTATION: April 30, 2018 A 22-year-old 1, para 1, who came into the hospital complaining of abdominal pain. She is status post cholecystectomy last week and now, she is suffering from pancreatitis. Her last menstrual period was April 05, 2018. She has also been complaining of heavy vaginal bleeding for few months irregular periods and large clots. She bleeds for 7 days a month. However, recently, she has been bleeding throughout the whole month. PAST MEDICAL HISTORY: Nonsignificant. PAST SURGICAL HISTORY: Nonsignificant. NO KNOWN DRUG ALLERGIES. MEDICATIONS: Vitamins. SOCIAL HISTORY: Denied smoking, alcohol, drug abuse. EXAM VITAL SIGNS: Stable. CHEST: Clear to auscultation. CARDIOVASCULAR: Regular rate and rhythm. ABDOMEN: Soft, nontender. ASSESSMENT AND PLAN: A 22-year-old 1, para 1, spontaneous vaginal delivery, who came in, who is complaining of menometrorrhagia. Will proceed with hysteroscopy, D and. Risks, benefits, complications were all explained to the patient. Job#: [id number] KIMBERLEE
[2018-05-01] MEDS: ONDANSETRON HCL 4 MG ORAL DISINTEGRATING TAB PO PRN ×2 (01:45→17:26)
[2018-05-01] MEDS: HYDROMORPHONE 2MG/ML INJ IV PRN ×3 (01:45→20:46)
[2018-05-01] MEDS: PIPER-TAZ 3.375 GM / NS 50ML IV SCH ×3 (06:14→22:00)
[2018-05-01 06:34] LABS: ALANINE AMINOTRANSFERASE 315 IU/L (0-55); ALBUMIN 3.1 g/dL (3.5-5.0); ALBUMIN/GLOBULIN RATIO 0.9 (0.8-2.0); ALKALINE PHOSPHATASE 148 IU/L (40-150); ANION GAP 12.6 mmol/L (8-16); BLOOD UREA NITROGEN 9 mg/dL (7-26); BUN/CREATININE RATIO 14 (6-25); CALCIUM 9.5 mg/dL (8.4-10.2); CARBON DIOXIDE 25 mmol/L (22-29); CHLORIDE 105 mmol/L (98-107); CREATININE, SERUM 0.65 mg/dL (0.57-1.11); EST GLOMERULAR FILTRATION RATE > 60 ML/MIN (60-); GLUCOSE 130 mg/dL (74-118); POTASSIUM 3.6 mmol/L (3.5-5.1); SODIUM 139 mmol/L (136-145)
[2018-05-01 07:29] LABS: BASOPHILS % 0.5 % (0.0-1.0); EOSINOPHILS # (AUTO) 0.3 (0.0-0.4); EOSINOPHILS % 4.9 % (0.0-6.0); HEMOGLOBIN 9.6 g/dL (12.0-16.0); LYMPHOCYTES # (AUTO) 1.7 (1.0-3.2); LYMPHOCYTES % 26.9 % (18.0-39.1); MEAN CORPUSCULAR HGB CONC 34.3 g/dL (31-35); MEAN CORPUSCULAR VOLUME 87.5 fL (81-99); MONOCYTES # (AUTO) 0.4 (0.2-0.8); NEUTROPHILS # (AUTO) 3.7 (2.1-6.9); NEUTROPHILS % 60.2 % (38.7-80.0); PLATELET COUNT 327 x10e3/uL (140-360); RED CELL DISTRIBUTION WIDTH 13.3 % (11.7-14.4); RETICULOCYTE % 4.3 % (0.8-2.2)
[2018-05-01] MEDS ORDERED: IOPAMIDOL 610MG/1ML 300 MG/ML VIAL IV ONE (08:09)
[2018-05-01] MEDS: PANTOPRAZOLE 40 MG 10ML VIAL IV SCH (10:20)
--- NOTE | 2018-05-01 10:33 | Progress Note ---
DATE: May 01, 2018 Ms. Paulino is a 22-year-old female with recent cholecystectomy. Discharged on Tuesday and came back to the emergency room complaining of severe abdominal pain. Lipase was elevated. She was found to have acute pancreatitis with probably choledocholithiasis residual after the cholecystectomy. She also was anemic and complaining of heavy menstrual periods. At the present time, the patient is going today for an ERCP and a hysteroscopy with D and C. PHYSICAL EXAMINATION GENERAL: The patient is ready for the procedure. VITALS: Temperature 97.9, blood pressure 93/52. HEART: Regular rate. BLOOD WORK: Potassium is 3.6, creatinine 0.65, glucose 130. White count 6.17, hemoglobin 9.6, hematocrit 28. Lipase 203 today. Liver enzymes: AST 116, ALT 315, alkaline phosphatase 148. ASSESSMENT 1. Acute pancreatitis. 2. Elevated liver enzymes. 3. Vomiting. 4. Status post recent cholecystectomy. 5. Anemia. 6. Menometrorrhagia. PLAN: At the present time, the patient is going for hysteroscopy and D and C as well as ERCP. She is on Protonix 40 mg daily and Zosyn IV q.8 h. as well as hydromorphone for pain. I am covering for Dr. Valle. Job#: [id number]
--- NOTE | 2018-05-01 12:01 | Diagnostic Imaging Report ---
PROCEDURE:ERCP TO BE READ TECHNIQUE:ERCP performed by the GI physicians. INDICATION:ERCP. Pancreatitis. Cholecystectomy. COMPARISON:CT abdomen pelvis 04/26/2018. MRCP 04/26/2018. FINDINGS: ERCP demonstrates prominent common bile duct which is within normal limits for post cholecystectomy. No filling defects. No strictures. Balloon sweeping was performed when no definite stones identified. Cumulative fluoroscopy time: 50 seconds. Cumulative area dose product: 514.34 cGycm2 Cumulative air kerma: 14.53 mGy CONCLUSION: Mildly prominent common bile duct, which is normal size for post cholecystectomy. No intraductal stones or strictures. Dictated by: Luis Velázquez M.D. on 05/01/2018 at 12:04 Electronically approved by: Luis Velázquez M.D. on 05/01/2018 at 12:04
--- NOTE | 2018-05-01 18:16 | Progress Note ---
DATE: May 01, 2018 SUBJECTIVE Ms. Paulino is awake, alert. She is having severe nausea and vomiting after today's ERCP. I advised her not to eat for the time being. She had ERCP earlier, which according to the nursing staff they found a couple of stones, removed in the common bile duct. The final report is not available. Her liver tests continue to slowly get better. OBJECTIVE VITAL SIGNS: Temperature 97, blood pressure 109/60. ABDOMEN: Soft, not tender. Will go ahead and check her amylase and lipase tomorrow and will continue. For the time being, n.p.o. Job#: [id number]
[2018-05-01] MEDS ORDERED: PROPOFOL IV EMULSION 10 MG/ML 20 ML VIAL ONE (18:31)
[2018-05-01] MEDS ORDERED: FENTANYL CITRATE/PF 100MCG/2 ML INJ ONE (18:36)
[2018-05-01] MEDS ORDERED: MIDAZOLAM HCL 2 MG/2 ML VIAL ONE (18:36)
[2018-05-01] MEDS ORDERED: SODIUM CHLORIDE 0.9% 250ML 250 ML ONE (22:07)
[2018-05-02] VITALS: BP 110/60
[2018-05-02 04:00] VITALS: BP 91/53
[2018-05-02] MEDS: PIPER-TAZ 3.375 GM / NS 50ML IV SCH ×3 (06:00→22:00)
[2018-05-02 06:59] LABS: ALANINE AMINOTRANSFERASE 376 IU/L (0-55); ALBUMIN 3.2 g/dL (3.5-5.0); ALBUMIN/GLOBULIN RATIO 0.9 (0.8-2.0); ALKALINE PHOSPHATASE 144 IU/L (40-150); AMYLASE 131 U/L (25-125); BLOOD UREA NITROGEN 8 mg/dL (7-26); BUN/CREATININE RATIO 13 (6-25); CALCIUM 9.5 mg/dL (8.4-10.2); CARBON DIOXIDE 24 mmol/L (22-29); CHLORIDE 102 mmol/L (98-107); CREATININE, SERUM 0.61 mg/dL (0.57-1.11); EST GLOMERULAR FILTRATION RATE > 60 ML/MIN (60-); GLUCOSE 109 mg/dL (74-118); LIPASE 268 U/L (8-78); SODIUM 134 mmol/L (136-145)
[2018-05-02 08:05] VITALS: BP 90/51
[2018-05-02] MEDS: PANTOPRAZOLE 40 MG 10ML VIAL IV SCH (08:42)
[2018-05-02 09:26] VITALS: BP 90/51
--- NOTE | 2018-05-02 10:31 | Progress Note ---
DATE: May 02, 2018 SUBJECTIVE: Ms. Paulino is a 22-year-old female who has recent cholecystectomy, was discharged home. She came back with abdominal pain, elevated lipase. She was found to have acute pancreatitis secondary to choledocholithiasis. Went for ERCP yesterday, had 2 stones removed. She also was complaining of lower abdominal cramping and excessive vaginal bleeding. Hysteroscopy and D and C were canceled. PHYSICAL EXAMINATION: GENERAL: Today, she is awake and alert. VITAL SIGNS: Temperature is 97.8, blood pressure is 90/51. HEART: Regular rate. LUNGS: Clear to auscultation. ABDOMEN: Soft. BLOOD WORK: Potassium 4.0, creatinine is 0.61, glucose 109. White count 6.17, hemoglobin is 9.6, hematocrit is 28. Amylase 131, AST 156, ALT 376, alkaline phosphatase 144. ASSESSMENT: 1. Acute pancreatitis secondary to gallstones. 2. Elevated liver enzymes. 3. Vomiting. 4. Status post recent cholecystectomy. 5. Choledocholithiasis. 6. Anemia. 7. Menometrorrhagia. PLAN: At present time is to continue to monitor liver enzymes. Continue IV antibiotics. Hysteroscopy and D and C were canceled and she will have that as an outpatient. Once patient is stable, she is going to be discharged home. All this was discussed with patient. All questions were answered to satisfaction. Job#: [id number]
--- NOTE | 2018-05-02 11:02 | Progress Note ---
DATE: May 02, 2018 She is a 22 year old who came in with pancreatitis, and was having an ERCP yesterday. We could not perform the hysteroscopy and D and C at the same time. I did not want to have her having another anesthesia for this elective procedure since her bleeding is mild. Accordingly, I explained the situation to the patient, and told her we would do the procedure after her discharge from the hospital of the hysteroscopy and D and C. All her questions were answered. Will follow up on her as an outpatient. Job#: [id number] MIK
[2018-05-02] MEDS: ONDANSETRON HCL 4 MG ORAL DISINTEGRATING TAB PO PRN (13:29)
[2018-05-02] MEDS: ACETAMINOPHEN 325 MG TAB PO PRN (13:29)
[2018-05-02] MEDS ORDERED: HYDROCODONE/APAP 5MG-325MG TAB PO PRN (14:45)
[2018-05-02 16:06] VITALS: BP 120/65
[2018-05-03 06:33] LABS: ALANINE AMINOTRANSFERASE 344 IU/L (0-55); ALBUMIN 3.2 g/dL (3.5-5.0); ALBUMIN/GLOBULIN RATIO 0.9 (0.8-2.0); ALKALINE PHOSPHATASE 133 IU/L (40-150); ANION GAP 11.7 mmol/L (8-16); BLOOD UREA NITROGEN 12 mg/dL (7-26); BUN/CREATININE RATIO 17 (6-25); CALCIUM 9.7 mg/dL (8.4-10.2); CARBON DIOXIDE 26 mmol/L (22-29); CHLORIDE 104 mmol/L (98-107); EST GLOMERULAR FILTRATION RATE > 60 ML/MIN (60-); GLUCOSE 133 mg/dL (74-118); LIPASE 397 U/L (8-78); POTASSIUM 3.7 mmol/L (3.5-5.1); SODIUM 138 mmol/L (136-145)
[2018-05-03 08:00] VITALS: BP 110/62
[2018-05-03] MEDS: PANTOPRAZOLE 40 MG 10ML VIAL IV SCH (09:06)
--- NOTE | 2018-05-03 09:18 | Progress Note ---
DATE: May 03, 2018 Ms. Paulino is a 22-year-old female with recent cholecystectomy. Came to the emergency room complaining of abdominal pain, elevated lipase. She was found to have choledocholithiasis. Had an ERCP the day before yesterday where they removed 2 stones. She also has been anemic due to excessive vaginal bleeding. Due to the acute pancreatitis, hysteroscopy and D and C were put on hold to do it as an outpatient. PHYSICAL EXAMINATION GENERAL: Today, she is awake and alert. She feels better. VITALS: Temperature is 96.7, blood pressure 110/62. HEART: Regular rate. LUNGS: Clear to auscultation. ABDOMEN: Soft. BLOOD WORK: Potassium 3.7, creatinine 0.7, glucose 133. Lipase went up to 397. AST and ALT are still elevated, but it is slowly going down. ASSESSMENT AND PLAN 1. Acute pancreatitis secondary to gallstones. 2. Elevated liver enzymes. 3. Status post recent cholecystectomy. 4. Status post choledocholithiasis. 5. Anemia. 6. Menometrorrhagia. PLAN: At the present time, the patient apparently is tolerating food. D and C and hysteroscopy as an outpatient. Continue IV antibiotics. We are going to continue to monitor liver enzymes and lipase. If by tomorrow they are going down and the patient is able to tolerate food, probably she will be discharged home. All of this was discussed with the patient. All questions were answered to satisfaction. Job#: [id number] MIK
[2018-05-03 11:02] VITALS: BP 110/62
[2018-05-03 12:00] VITALS: BP 123/55
[2018-05-03 16:02] VITALS: BP 108/68
[2018-05-03 19:57] VITALS: BP 104/71
== END 2018-05-03 20:32 | disposition home or self-care (01) | DRG 439 ==
LOC: ER 04:18 → MED/SURG2 05:56
PROVIDERS: ADMIT Internal Medicine; ATTEND Internal Medicine
PROC: 0FC98ZZ Extirpation of Matter from Common Bile Duct, Via Natural or Artificial Opening Endoscopic (ICD-10-PCS; principal; 2018-05-01 09:30)
DX: K85.10 Biliary acute pancreatitis without necrosis or infection (principal); E87.1 Hypo-osmolality and hyponatremia; E86.0 Dehydration; E66.01 Morbid (severe) obesity due to excess calories; Z68.39 Body mass index [BMI] 39.0-39.9, adult; I10 Essential (primary) hypertension; K80.50 Calculus of bile duct without cholangitis or cholecystitis without obstruction; N92.1 Excessive and frequent menstruation with irregular cycle; D64.9 Anemia, unspecified; E87.6 Hypokalemia; R79.89 Other specified abnormal findings of blood chemistry; Z90.49 Acquired absence of other specified parts of digestive tract
CPT/HCPCS: 36415; 74022; 74176; 74181; 74328; 76830; 80053; 81001; 81025; 82150; 82607; 82728; 82747; 83540; 83690; 83735; 84466; 85025; 85045; 96361; 96367; 96374; 99284; J2250; J2543; J3480; J7030; J7050